=== PATIENT | female | born 1985 | race Caucasian/White ===

== ENCOUNTER 2020-08-06 18:58 | Emergency (ER) | payer OTHER, SELFPAY ==
[2020-08-06 19:18] VITALS: BP 119/60; PULSE 85; RESP 16; TEMP 36.8; O2SAT 100; BMI 33.6
--- NOTE | 2020-08-06 21:34 | CT_ITS ---
EXAMINATION: CT HEAD WITHOUT CONTRAST CLINICAL INFORMATION: Right-sided Headache COMPARISON: None TECHNIQUE: Contiguous axial imaging was performed from the skull base to vertex without intravenous administration of contrast. Coronal and sagittal reformatted images are performed at CT scanner This CT examination was performed using dose optimization techniques as appropriate, variously including the following: *Automated exposure control *Adjustment of mA and/or kV according to patient size (this includes techniques or standardized protocols for targeted exams where dose is matched to indication/reason for exam; i.e. extremities or head) *Use of iterative reconstruction technique DLP: 673 mGy-cm FINDINGS: There is no evidence of acute intracranial hemorrhage or territorial infarction. No abnormal mass effect or midline shift is seen. [place] to white matter differentiation is well preserved. No extra-axial fluid collections are identified. The ventricles are normal in size. There is no abnormal attenuation within the brain parenchyma. The osseous structures and soft tissues are normal. The mastoid air cells and visualized portions of the paranasal sinuses are well aerated. CT/CT head/brain wo con IMPRESSION: No acute intracranial pathology.
--- NOTE | 2020-08-06 21:34 | ED.HA ---
HPI - Headache General Chief Complaint: Headache Stated Complaint: Headache Time Seen by Provider: 08/06/20 22:20 Related Data Previous Rx's Medication Instructions Recorded wrpnabqexp-arqvfbevgsmjd-jdof 1 cap PO Q8H PRN #10 cap 08/06/20 [Fioricet] Allergies Allergy/AdvReac Type Severity Reaction Status Date / Time cephalexin [From KEFLEX] Allergy Unknown RASH Unverified 05/17/20 18:37 sulfamethoxazole Allergy Unknown RASH Unverified 05/17/20 18:37 [From BACTRIM] trimethoprim [From BACTRIM] Allergy Unknown RASH Unverified 05/17/20 18:37 Review of Systems Review of Systems: Constitutional: No Weight loss, No Fever, No Chills, No Night Sweats, No Fatigue, No Malaise, positive right-sided headache ENT/Mouth: No Hearing loss, No Ear Pain, No Nasal Congestion, No Sinus Pain, No Hoarseness, No sore throat, No Rhinorrhea, No Swallowing Difficulty Eyes: Positive right Eye Pain, No Swelling, No Redness, No Foreign Body, No Discharge, No Vision Changes Cardiovascular: No Chest Pain, No SOB, No Dyspnea on Exertion, No Orthopnea, No Edema, No Palpitations Respiratory: No Cough, No Sputum, No Wheezing, No Smoke Exposure, No Dyspnea Gastrointestinal: No Nausea, No Vomiting, No Diarrhea, No Constipation, No abdominal Pain, No Hematochezia, No Melena Genitourinary: no irregular bleeding, No Dysuria, No Urinary Frequency, No Hematuria, No Urinary Incontinence, No Urgency, No Flank Pain, No Urinary Flow Changes, No Hesitancy Musculoskeletal: No joint pain, No Myalgias, No Joint Swelling Skin: No Skin Lesions, No rash Neuro: No Weakness, No Numbness, No Paresthesias, No Loss of Consciousness, No Dizziness, positive Headache Psych: No Anxiety/Panic, No Depression, No SI/HI/AH/VH, No Social Issues Heme/Lymph: No Bruising, No Bleeding,No Lymphadenopathy Endocrine: No Polyuria, No Polydipsia, No Temperature Intolerance Yes all other systems are reviewed and are negative [facility] Past Medical History Attestation statement: The following information was validated with the patient. Medical History No known health problems Social History Social History Advance Directives: No Advance Directives Information Provided: Yes Physical Exam Vital Signs: Vital Signs: Last Vital Signs Temp 98.1 F 08/06/20 22:24 Pulse 76 08/06/20 22:24 Resp 20 08/06/20 22:24 BP 113/72 08/06/20 22:24 Pulse Ox 98 08/06/20 22:24 Body Mass Index 33.6 Appearance: Alert. Oriented X3. No acute distress. Eyes: Pupils equal, round and reactive to light. EOMI, no pain on extraocular movements, funduscopic exam is normal ENT: Pharynx normal. bilateral tympanic membranes intact, no indication of temporal arteritis Neck: Normal inspection. Neck supple. CVS: Normal heart rate and rhythm. Pulses normal. Respiratory: No respiratory distress. Breath sounds normal. Abdomen: Soft and nontender. Skin: Skin warm and dry. Normal skin color. Normal skin turgor. Extremities: No lower extremity edema. Neuro: No motor deficit. No sensory deficit. cranial nerves 2-12 intact, no focal neural deficits, NIH stroke scale 0 NIH Stroke Scale Internal: Initial- Upon Arrival Level of Consciousness: Alert Level of Consciousness Questions: Answers both questions correctly Level of Consciousness Commands: Performs both tasks correctly Best Gaze: Normal Visual: No visual loss Facial Palsy: Normal Motor Arm (Right): No drift Motor Arm (Left): No drift Motor Leg (Right): No drift Motor Leg (Left): No drift Limb Ataxia: Absent Sensory: Normal Best Language: No aphasia Dysarthia: Normal Extinction and Inattention: No abnormality Score: 0 Course Course Course Narrative: patient presents with a right-sided headache, and eye pain. She was referred to the emergency department by her primary care physician and [employer]. She states that both of them think that she is having a stroke right now however she has no focal neural deficits, cranial nerves 2-12 intact. NIH stroke scale is 0 on arrival. She has not used any medications to help alleviate her headache today. Despite multiple discussions and explanations regarding stroke protocol, patient is adamant that she wants a CT scan of her head. She also does not report any history of head trauma, falls, or loss of consciousness. She does not have cancer, is not on any blood thinners. CT scan of head ordered, we will give dose of Fioricet. Patient states that the Fioricet has alleviated her headache from a 10/10 to a 6/10. CT scan of head is negative for acute findings. Plan of care is to discharge patient home. hourly sign language interpreter utilized for all correspondence. Google translate utilized for discharge instructions. MDM - Headache Differential Diagnosis Differential diagnosis: Likely migraine, tension headache, subarachnoid hemorrhage, headache and sinusitis Discharge Plan Discharge Clinical Impression: Migraine, Tension headache Patient Disposition: Home, Self-Care Instructions: Tension Headache (ED), Acute Headache (ED) Additional Instructions: se le evalu? el dolor de zafar del lado derecho. La tomograf?a computarizada del cerebro fue negativa para los hallazgos agudos que requirieron malissa intervenci?n emergente. Se sospecha que esto es un dolor de zafar por migra?a tensional. Seguimiento con el proveedor de atenci?n primaria para el mayor ejercicio. Le recetamos a Fioricet para shalom de zafra. Por favor, tome kirti medicamento chika se indica. Yina por elegir kirti departamento de emergencias para la evaluaci?n. Por favor, evangelina un seguimiento con el m?dico de atenci?n primaria seg?n sea necesario. Regrese al servicio de urgencias para cualquier s?ntoma nuevo, preocupante o que empeore. you were evaluated for right-sided headache. CT scan of the brain was negative for acute findings requiring emergent intervention. This is suspected to be a tension migraine headache. Follow-up with primary care provider for further workup. We prescribed Fioricet for headaches. Please take this medication as directed. Thank you for choosing this emergency department for evaluation. Please follow-up with primary care physician as needed. Return to the emergency department for any new, concerning, or worsening symptoms. Prescriptions: New vywouasdof-digelltrsbubx-diwh [Fioricet] 50-300-40 mg capsule 1 cap PO Q8H PRN (Reason: headache) Qty: 10 RF: 0 Interventions: ED Discharge Assessment Last Done: 08/06/20 22:58 Discharge Date/Time: 08/06/20 22:59
[2020-08-06] MEDS: Butalb/Acetamin/Caff 50/325/40 TABLET 1 TAB PO (21:43)
[2020-08-06 22:24] VITALS: BP 113/72; PULSE 76; RESP 20; TEMP 36.7; O2SAT 98
== END 2020-08-06 22:59 | disposition home or self-care (01) ==
PROVIDERS: Emergency Provider Internal Medicine
DX: G44.209 Tension-type headache, unspecified, not intractable (principal); G43.909 Migraine, unspecified, not intractable, without status migrainosus
CPT/HCPCS: 70450; 99283; 99284

== ENCOUNTER 2023-03-10 15:41 | Emergency (ER) | payer OTHER, SELFPAY ==
--- NOTE | ~2023-03-10 | XR_ITS ---
EXAMINATION: XR CHEST CLINICAL INFORMATION: Shortness of breath. COMPARISON: None available. TECHNIQUE: Frontal view of the chest was obtained. FINDINGS: No significant abnormality is noted involving the heart, lungs, mediastinum, bony thorax or soft tissues. XR/XR chest 1V IMPRESSION: No acute cardiopulmonary process.
--- NOTE | 2023-03-10 15:50 | ECG_ITS ---
Test Reason : CP Blood Pressure : / mmHG Vent. Rate : 076 BPM Atrial Rate : 076 BPM P-R Int : 158 ms QRS Dur : 078 ms QT Int : 372 ms P-R-T Axes : 062 008 -06 degrees QTc Int : 418 ms Normal sinus rhythm Nonspecific T wave abnormality Abnormal ECG When compared with ECG of 29-APR-2019 22:40, No significant change was found Referred By: Chad Leslie Electronically Signed By:TIARA MARCOS MD
--- NOTE | 2023-03-10 15:50 | ED_ITS ---
HPI - General Adult General Chief complaint: Chest Pain Stated complaint: Headache/SOB Related Data Previous Rx's ?Medication ?Instructions ?Recorded jjrklggvhp-qlqyawmehdvql-qfophmml 1 cap PO Q8H PRN headache #10 caps 08/06/20 50 mg-300 mg-40 mg capsule (Fioricet) amoxicillin 500 mg capsule 1,000 mg (2 x 500 mg) PO TID 5 12/14/23 days #30 caps ondansetron 4 mg disintegrating 4 mg PO Q8H PRN nausea and 12/14/23 tablet vomiting #10 tabs Allergies Allergy/AdvReac Type Severity Reaction Status Date / Time cephalexin [From KEFLEX] Allergy Unknown RASH Verified 12/14/23 12:42 sulfamethoxazole Allergy Unknown RASH Verified 12/14/23 12:42 [From BACTRIM] trimethoprim [From BACTRIM] Allergy Unknown RASH Verified 12/14/23 12:42 PMFSH Past Medical History Medical History No known health problems Social History Social History Smoked in Last 30 Days: Yes Use of substances other than those prescribed or required for medical reasons: No Advance Directives: No Advance Directives Information Provided: No Physical Exam ED Vital Signs: BMI result Body Mass Index 34.7 Course Course Course Narrative: This is an RME: Additional HPI, ROS, PE not included below will be deferred to primary provider. 38-year-old female without significant medical history presents to the emergency department complaints of right-sided headache, severe, feeling faint, weakness, shortness of breath, fatigue, malaise, myalgias ongoing since this morning, sudden in onset. Patient also reports she is having palpitations. Patient anxious appearing on exam. Bp: 133/94 T: 97.9F R: 14 P: 88 O2 98% RA Plan- labs, urine Medical Decision Making Lab Data 03/10/23 16:40 03/10/23 16:40 Labs: Lab Results 03/10/23 03/10/23 Range/Units 16:40 16:47 WBC 11.3 H (4.8-10.8) X10*3/uL RBC 4.45 (4.20-5.50) X10*6/uL Hgb 12.3 (12.0-16.0) g/dl Hct 37.2 (37.0-47.0) % MCV 83.6 (80.0-98.0) fL MCH 27.6 (27.0-33.0) pg MCHC 33.1 (31.0-35.0) g/dl RDW 13.3 (11.0-16.0) % Plt Count 351 (160-400) X10*3/uL MPV 10.3 (9.4-12.3) fL Immature Gran % (Auto) 0.3 (0.0-0.4) % Neut % (Auto) 71.5 (45-73) % Lymph % (Auto) 20.4 (20-40) % [place] % (Auto) 6.7 (2-11) % Eos % (Auto) 0.7 (0-4) % Baso % (Auto) 0.4 (0-2) % Lymph # (Auto) 2.3 (1.2-4.9) X10*3/uL [place] # (Auto) 0.8 (0.1-1.2) X10*3/uL Eos # (Auto) 0.1 (0.0-0.4) X10*3/uL Baso # (Auto) 0.1 (0.0-0.2) X10*3/uL Abs Immat Gran (auto) 0.03 (0.00-0.03) X10*3/uL Absolute Neuts (auto) 8.1 (2.0-8.3) x10*3/uL Absolute Nucleated RBC 0.000 (0.0-0.012) X10*3/uL Nucleated RBC % (auto) 0.0 (0.0-0.2) /100WBC D-Dimer High Sensitivty < 150 NG/ML Sodium 137 (135-145) mmol/L Potassium 3.6 (3.3-5.1) mmol/L Chloride 106 (96-108) mmol/L Carbon Dioxide 21 L (22-29) mmol/L Anion Gap 14 (12-20) BUN 6 L (9-16) mg/dL Creatinine 0.70 (0.5-1.4) mg/dL Estim Creat Clear Calc 113.0 Estimated GFR > 60 Random Glucose 110 (60-115) mg/dL Calcium 9.3 (8.4-10.2) mg/dL Magnesium 2.0 (1.6-2.6) mg/dL Total Bilirubin 0.6 (0.0-1.0) mg/dL AST 15 (5-31) U/L ALT 14 (0-31) U/L Alkaline Phosphatase 70 (39-117) U/L Troponin I High Sens < 2.7 (<3.5-17.0) ng/L Total Protein 7.4 (6.5-8.0) g/dL Albumin 3.8 (3.5-5.0) g/dL Urine Color Yellow Urine Appearance Clear Urine pH 6.0 (5.0-9.0) Ur Specific [place] 1.025 (1.005-1.025) Urine Protein Trace (Neg-Trace) mg/dL Urine Glucose (UA) Negative (Negative) mg/dL Urine Ketones Trace (Negative) mg/dL Urine Blood Moderate (2+) H (Negative) Urine Nitrite Negative (Negative) Ur Leukocyte Esterase Negative (Negative) Urine RBC 11-20 H (0-2) /HPF Urine WBC 0-5 (0-5) /HPF Ur Squamous Epith Cells 3-5 (0-2) /HPF Urine Bacteria Trace (None Seen) Hyaline Casts 0-2 (0-2) /LPF Urine Test NEGATIVE (NEGATIVE) Discharge Plan Discharge Clinical Impression: Eloped from emergency department Patient Disposition: Elopement Prescriptions: No Action ggtizuqmyk-hytxjdqnycnem-ruoq [Fioricet] 50-300-40 mg capsule 1 cap PO Q8H PRN (Reason: headache) Qty: 10 0RF ondansetron 4 mg tablet,disintegrating 4 mg PO Q8H PRN (Reason: nausea and vomiting) Qty: 10 0RF amoxicillin 500 mg capsule 1,000 mg PO TID 5 Days Qty: 30 0RF Discharge Date/Time: 03/11/23 00:31 Print Language: Albanian
[2023-03-10 15:53] VITALS: BP 133/94; PULSE 88; RESP 19; TEMP 36.6; O2SAT 98; BMI 34.7
[2023-03-10 16:49] LABS: MANUAL DIFF FLAG NO
[2023-03-10 16:55] LABS: Basophils Absolute Auto 0.1 X10*3/uL (0.0-0.2); Basophils Percent Auto 0.4 % (0-2); Eosinophils Absolute Auto 0.1 X10*3/uL (0.0-0.4); Eosinophils Percent Auto 0.7 % (0-4); Hematocrit 37.2 % (37.0-47.0); Hemoglobin 12.3 g/dl (12.0-16.0); Imm Gran Abs Auto 0.03 X10*3/uL (0.00-0.03); Imm Gran Pct Auto 0.3 % (0.0-0.4); Lymphocytes Absolute Auto 2.3 X10*3/uL (1.2-4.9); Lymphocytes Percent Auto 20.4 % (20-40); Mean Corpuscular HGB Conc 33.1 g/dl (31.0-35.0); Mean Corpuscular Hemoglobin 27.6 pg (27.0-33.0); Mean Corpuscular Volume 83.6 fL (80.0-98.0); Mean Platelet Volume 10.3 fL (9.4-12.3); Monocytes Absolute Auto 0.8 X10*3/uL (0.1-1.2); Monocytes Percent Auto 6.7 % (2-11); Neutrophils Absolute Auto 8.1 x10*3/uL (2.0-8.3); Neutrophils Percent Auto 71.5 % (45-73); Platelet Count 351 X10*3/uL (160-400); Red Blood Count 4.45 X10*6/uL (4.20-5.50); Red Cell Distribution Width 13.3 % (11.0-16.0); White Blood Count 11.3 X10*3/uL (4.8-10.8)
[2023-03-10 17:02] LABS: Appearance Urine Clear; Color Urine Yellow; Glucose Urine UA Negative (Negative); Leukocyte Esterase Urine Negative (Negative); Nitrite Urine Negative (Negative); Specific Gravity - Urine 1.025 (1.005-1.025); UMIC TRIGGER UACC YES; Urine Blood Moderate (2+) (Negative); Urine Ketones Trace mg/dL (Negative); Urine Protein Trace mg/dL (Neg-Trace)
[2023-03-10 17:06] LABS: D Dimer High Sensitivity < 150 NG/ML
[2023-03-10 17:07] LABS: UPreg QC Valid YES; Urine Pregnancy NEGATIVE (NEGATIVE)
[2023-03-10 17:08] LABS: Bacteria Urine Trace (None Seen); Hyaline Casts Urine 0-2 /LPF (0-2); WBC Urine 0-5 /HPF (0-5)
[2023-03-10 17:11] LABS: Alanine Aminotransferase 14 U/L (0-31); Albumin Level 3.8 g/dL (3.5-5.0); Alkaline Phosphatase 70 U/L (39-117); Anion Gap 14 (12-20); Aspartate Amino Transferase 15 U/L (5-31); Bilirubin Total 0.6 mg/dL (0.0-1.0); Blood Urea Nitrogen 6 mg/dL (9-16); Calcium 9.3 mg/dL (8.4-10.2); Carbon Dioxide 21 mmol/L (22-29); Chloride 106 mmol/L (96-108); Estimated Glomerular Filt Rate > 60; Glucose Random 110 mg/dL (60-115); Potassium 3.6 mmol/L (3.3-5.1); Sodium 137 mmol/L (135-145); Total Protein 7.4 g/dL (6.5-8.0)
[2023-03-10 17:18] LABS: Troponin-I High Sensitivity < 2.7 ng/L (<3.5-17.0)
== END 2023-03-11 00:31 | disposition left against medical advice (07) ==
LOC: HO.ED 03-11 00:25
PROVIDERS: Physician Assistant; Emergency Provider Emergency Medicine; PCP Internal Medicine
DX: R51.9 Headache, unspecified (principal); R06.02 Shortness of breath; F41.9 Anxiety disorder, unspecified; R00.2 Palpitations
CPT/HCPCS: 36415; 71045; 80053; 81001; 81003; 81025; 83735; 84484; 85025; 85379; 93005; 99283

== ENCOUNTER → 2023-03-10 15:50 | Outpatient (BNV) | payer OTHER, SELFPAY | PROVIDERS: Emergency Provider Emergency Medicine; PCP Internal Medicine; Visit Provider Internal Medicine Cardiovascular Disease | DX: R94.31 Abnormal electrocardiogram [ECG] [EKG] (principal); R07.9 Chest pain, unspecified | CPT/HCPCS: 93010 ==

== ENCOUNTER 2023-12-14 12:01 | Emergency (ER) | payer OTHER, SELFPAY ==
--- NOTE | ~2023-12-14 | XR_ITS ---
EXAMINATION: XR CHEST CLINICAL INFORMATION: Cough. COMPARISON: Chest radiograph dated 03/10/2023. TECHNIQUE: 2 views of the chest were obtained. FINDINGS: The trachea is in normal anatomic position. Heart size is normal. There is a subtle right lower lobe opacity which was not seen on the prior examination and is felt to represent developing pneumonia. The left lung is clear. There is no pleural effusion or pneumothorax. There is no acute osseous abnormality. XR/XR chest 2V IMPRESSION: Suspected right lower lobe pneumonia.
--- NOTE | ~2023-12-14 | CT_ITS ---
EXAMINATION: CT ABDOMEN AND PELVIS WITHOUT CONTRAST CLINICAL INFORMATION: LLQ tenderness. COMPARISON: No pertinent prior studies are available for comparison. TECHNIQUE: Multidetector volumetric imaging was performed from the superior aspect of the liver through the pubic symphysis without contrast per request. Sagittal and coronal reformatted images were obtained on the technologist workstation. This CT examination was performed using dose optimization techniques as appropriate, variously including the following: *Automated exposure control *Adjustment of mA and/or kV according to patient size (this includes techniques or standardized protocols for targeted exams where dose is matched to indication/reason for exam; i.e. extremities or head) *Use of iterative reconstruction technique DLP: 614 mGy-cm. FINDINGS: LUNG BASES: Focal opacity in the right lower lobe most consistent with partially visualized pneumonia. Subtle air bronchograms are seen laterally. More hazy airspace changes in the left lingula as well. LIVER, GALLBLADDER, BILIARY TREE: The non-contrast liver is normal in size, shape, and attenuation. Coarse calcifications in the posterior right lobe the liver incidentally noted. No focal hepatic lesion or biliary ductal dilatation is present. The gallbladder is unremarkable with no evidence of radiopaque gallstones, gallbladder wall thickening, or obvious pericholecystic inflammatory changes. PANCREAS: Unremarkable. SPLEEN: Unremarkable. ADRENAL GLANDS: Unremarkable. KIDNEYS AND URETERS: The kidneys are normal in size, shape, and attenuation. No hydronephrosis, hydroureter, or perinephric stranding. No calculi. BLADDER: Decompressed GASTROINTESTINAL TRACT: A few scattered colonic diverticula seen. No obvious colonic wall thickening or pericolonic inflammatory change to suggest diverticulitis. Normal-appearing appendix in the right lower quadrant. Visualized small bowel unremarkable. ABDOMINAL WALL: No significant hernia is appreciated. LYMPHOVASCULAR STRUCTURES: No lymphadenopathy. The aorta is unremarkable.. PELVIC VISCERA: Physiologic changes. OSSEUS STRUCTURES: Degenerative changes in the bilateral hips CT/CT abdomen pelvis wo IV con IMPRESSION: Focal airspace disease in the right lower lobe most consistent with partially visualized pneumonia. More hazy airspace disease in the left lingula as well. No acute intra-abdominal process seen otherwise.
[2023-12-14 12:42] VITALS: BP 137/99; PULSE 114; RESP 26; TEMP 37.4; O2SAT 94; BMI 32.1
--- NOTE | 2023-12-14 12:43 | ED.GENADULT ---
HPI - General Adult General Chief complaint: Abdominal Pain Stated complaint: Covid symptoms Time Seen by Provider: 12/14/23 14:34 Source: patient and family Mode of arrival: ambulatory Limitations: no limitations History of Present Illness HPI narrative: 38 yo female presenting to the ER for evaluation of cough, congestion, headache, weakness, and feeling unwell for the last 4 days. She presents with her daughter who has similar symptoms. she also reports left sided abdominal pain and vomiting after eating for a few months. She has been trying to get a hold of her doctor but has been unable to be evaluated for this. No diarrhea. No fevers. She has not vaccinated for the flu. MD complaint: URI symptoms, left side abdominal pain and vomiting Quality: aching Pain Consistency: intermittent Relieving factors: none Associated symptoms: cough, fever/chills, headaches, loss of appetite, malaise, nausea/vomiting, shortness of breath and weakness Treatments prior to arrival: none Related Data Previous Rx's ?Medication ?Instructions ?Recorded bztgesmqos-bbiupzzcqsyny-wlofafrp 1 cap PO Q8H PRN headache #10 caps 08/06/20 50 mg-300 mg-40 mg capsule (Fioricet) amoxicillin 500 mg capsule 1,000 mg (2 x 500 mg) PO TID 5 12/14/23 days #30 caps ondansetron 4 mg disintegrating 4 mg PO Q8H PRN nausea and 12/14/23 tablet vomiting #10 tabs Allergies Allergy/AdvReac Type Severity Reaction Status Date / Time cephalexin [From KEFLEX] Allergy Unknown RASH Verified 12/14/23 12:42 sulfamethoxazole Allergy Unknown RASH Verified 12/14/23 12:42 [From BACTRIM] trimethoprim [From BACTRIM] Allergy Unknown RASH Verified 12/14/23 12:42 Review of Systems Review of Systems: Yes all other systems are reviewed and are negative PMFSH Past Medical History Medical History No known health problems Social History Social History Smoked in Last 30 Days: Yes Use of substances other than those prescribed or required for medical reasons: No Advance Directives: No Advance Directives Information Provided: No Physical Exam ED Vital Signs: Vital Signs - 24 hr 12/14/23 12:42 12/14/23 15:54 12/14/23 17:38 Temperature 99.3 F 98.4 F Pulse Rate 114 H 100 Respiratory Rate 26 H 19 28 H Blood Pressure 137/99 H 114/54 L 111/58 L Pulse Oximetry 94 96 94 Oxygen Delivery Method Room Air Room Air Room Air BMI result Body Mass Index 32.1 Appearance: Alert. Oriented X3. No acute distress. Head: normocephalic, atraumatic. Eyes: Pupils equal, round and reactive to light. ENT: Pharynx normal. No tonsillar swelling or exudate. Neck: Normal inspection. Neck supple. CVS: Tachycardic, regular rhythm heart rate of 100. Pulses normal. Respiratory: No respiratory distress. Breath sounds coarse throughout with scattered expiratory wheezes, cleared with coughing. Abdomen: Soft with left lower quadrant tenderness and guarding. Normal active +BS x4 Skin: Skin warm and dry. Normal skin color. Normal skin turgor. No rashes. Extremities: No lower extremity edema. No joint swelling. Neuro/psych: Oriented X 3. No motor deficit. No sensory deficit. CN II-XII intact. Normal speech and cognition. Course Course Course Narrative: RME- 38 old female presents for evaluation left lower abdominal pain has been present for months. She also complains of cough, headache, body aches, weakness. Plan for labs, UA, viral swabs Reevaluation(s) Reevaluation #1: VS improved. awaiting CT scan results. will repeat K. Signed out to Gulshan Jacques NP who will f/u results and dispo Time: 16:14 Reevaluation #2: Repeat potassium of 3.1 after receiving potassium chloride 10 mEq use intravenous, and 60 mEq p.o. Urinalysis with microscopic hematuria, significant squamous epithelial cells, 1+ urine bacteria Chest x-ray/ CT of the abdomen and pelvis reveals partially visualized pneumonia of the right lower lobe, hazy airspace disease in the left lingula as well, otherwise no acute intra-abdominal process. Concern for superimposed bacterial pneumonia in the setting influenza given leukocytosis left shift and no other obvious source of infection. Will treat with amoxicillin 1g 3 times daily for 5 days XR/XR chest 2V IMPRESSION: Suspected right lower lobe pneumonia. CT/CT abdomen pelvis wo IV con IMPRESSION: Focal airspace disease in the right lower lobe most consistent with partially visualized pneumonia. More hazy airspace disease in the left lingula as well. No acute intra-abdominal process seen otherwise. Medications Administered Discontinued Medications Generic Name Dose Route Start Last Admin Trade Name Freq PRN Reason Stop Dose Admin Acetaminophen 975 mg 12/14/23 14:48 12/14/23 15:04 Acetaminophen 325 Mg Tablet PO 12/14/23 14:49 975 mg ONCE ONE Administration Lactated Ringer's 1,000 mls @ 999 mls/hr 12/14/23 15:00 12/14/23 18:47 Lr IV 12/14/23 16:00 Infused .Q1H1M MARCO Infusion Potassium Chloride 10 meq in 100 mls @ 100 mls/hr 12/14/23 14:59 12/14/23 17:33 Potassium Chloride/H20 IV 12/14/23 15:58 Infused ONCE ONE Infusion Potassium Chloride 10 meq in 100 mls @ 100 mls/hr 12/14/23 17:59 12/14/23 18:53 Potassium Chloride/H20 IV 12/14/23 18:58 100 mls/hr ONCE ONE Administration Ondansetron HCl 4 mg 12/14/23 14:48 12/14/23 15:04 Ondansetron Odt 4 Mg Tab.Rapdis TRANSLINGU 12/14/23 14:49 4 mg ONCE ONE Administration Potassium Chloride 60 meq 12/14/23 14:59 12/14/23 15:20 Potassium Chloride Er 20 Meq Tab.Er.Prt PO 12/14/23 15:00 60 meq ONCE ONE Administration Medical Decision Making Medical Decision Making [facility] Narrative: 38-year-old female presents the ER for evaluation of feeling sick for the last 4 days with sore throat, headache, weakness, nasal congestion, coughing. She also reports left-sided abdominal pain and postprandial vomiting for months. She is tender in her LLQ and suprapubic area. Her URI symptoms are most c/w flu vs covid. CT scan ordered due to her abdominal tenderness. 15:35 - Labs showing WBC 16K. Meeting sepsis criteria with tachycardia, elevated RR however this is due to viral source as patient found to be Influenza A +. No role for tamiflu given she is 4 days into her symptoms. She was also found to have K 2.8, likely due to GI losses. Given PO and IV KCl and LR. No vomiting here. SL zofran given. Differential Diagnosis Differential Diagnoses: The differential diagnosis associated with the presentation includes strep, covid, flu, rsv, other viral syndrome, bronchitis, pneumonia, diverticulitis, UTI Admission/Observation Consideration of admission/observation: Escalation of care including admission/observation considered Lab Data MDM Lab Attestation statement: I reviewed the patient's lab results. Leukocytosis with white blood cell count 16.2, hypokalemia of 2.8, hyperglycemia 205 12/14/23 14:28 12/14/23 16:32 Labs: Lab Results 12/14/23 12/14/23 12/14/23 Range/Units 14:28 16:32 16:53 WBC 16.2 H (4.8-10.8) X10*3/uL RBC 4.88 (4.20-5.50) X10*6/uL Hgb 13.7 (12.0-16.0) g/dl Hct 40.1 (37.0-47.0) % MCV 82.2 (80.0-98.0) fL MCH 28.1 (27.0-33.0) pg MCHC 34.2 (31.0-35.0) g/dl RDW 13.1 (11.0-16.0) % Plt Count 255 D (160-400) X10*3/uL MPV 11.5 (9.4-12.3) fL Immature Gran % (Auto) 0.6 H (0.0-0.4) % Neut % (Auto) 87.0 H (45-73) % Lymph % (Auto) 3.9 L (20-40) % [place] % (Auto) 8.4 (2-11) % Eos % (Auto) 0.0 (0-4) % Baso % (Auto) 0.1 (0-2) % Lymph # (Auto) 0.6 L (1.2-4.9) X10*3/uL [place] # (Auto) 1.4 H (0.1-1.2) X10*3/uL Eos # (Auto) 0.0 (0.0-0.4) X10*3/uL Baso # (Auto) 0.0 (0.0-0.2) X10*3/uL Abs Immat Gran (auto) 0.09 H (0.00-0.03) X10*3/uL Absolute Neuts (auto) 14.1 H (2.0-8.3) x10*3/uL Absolute Nucleated RBC 0.000 (0.0-0.012) X10*3/uL Nucleated RBC % (auto) 0.0 (0.0-0.2) /100WBC Sodium 137 (135-145) mmol/L Potassium 2.8 L* 3.1 L (3.3-5.1) mmol/L Chloride 102 (96-108) mmol/L Carbon Dioxide 26 (22-29) mmol/L Anion Gap 12 (12-20) BUN 7 L (9-16) mg/dL Creatinine 0.75 (0.5-1.4) mg/dL Estim Creat Clear Calc 101.2 Estimated GFR > 60 Random Glucose 205 H (60-115) mg/dL Calcium 8.9 (8.4-10.2) mg/dL Total Bilirubin 0.4 (0.0-1.0) mg/dL AST 13 (5-31) U/L ALT 17 (0-31) U/L Alkaline Phosphatase 69 (39-117) U/L Total Protein 7.9 (6.5-8.0) g/dL Albumin 4.0 (3.5-5.0) g/dL Lipase 5 L (8-78) U/L Urine Color Dark Yellow Urine Appearance Turbid Urine pH 5.5 (5.0-9.0) Ur Specific [place] 1.025 (1.005-1.025) Urine Protein 300 (3+) H (Neg-Trace) mg/dL Urine Glucose (UA) 100 H (Negative) mg/dL Urine Ketones 15 (Negative) mg/dL Urine Blood Large (3+) H (Negative) Urine Nitrite Negative (Negative) Ur Leukocyte Esterase Negative (Negative) Urine RBC 3-5 H (0-2) /HPF Urine WBC 0-5 (0-5) /HPF Ur Squamous Epith Cells >20 (0-2) /HPF Urine Bacteria 1+ (None Seen) Hyaline Casts 11-20 (0-2) /LPF Urine Test NEGATIVE (NEGATIVE) Influenza Type A (PCR) POSITIVE A (Negative) Influenza Type B (PCR) NEGATIVE (Negative) RSV RNA Qual (PCR) NEGATIVE (Negative) SARS-CoV-2 RNA (RT-PCR) NEGATIVE (Negative) S. pyogenes GrpA JOSSE Negative (Negative) Independent Interpretation I performed an independent interpretation of an: CT Scan Radiology Impression Discussion of test interpretation with radiology: I have reviewed the radiologist's reading. External Record Review External record reviewed: Outpatient record and Prior outpatient labs Prescription Management I considered prescription management with: Pain Medication, Antiviral and Antibiotic Critical Care Time Critical Care Time Critical Care Time: Yes Total Critical Care Time: 39 Attestation: I have personally provided critical care time exclusive of time spent on separately billable procedures. Time includes review of lab data, radiology results, multiple bedside reassessments, and monitoring for potential decompensation. Intervention performed as documented. Discharge Plan Discharge Clinical Impression: Hypokalemia, Influenza A Community acquired pneumonia Qualifiers: Laterality: right Lung location: lower lobe of lung Qualified Code(s): J18.9 - Pneumonia, unspecified organism Patient Disposition: Home, Self-Care Instructions: Hypokalemia (ED), Influenza (DC) Additional Instructions: You were found to have the flu and have developed pneumonia in your right lower lung. A prescription for antibiotic was sent to your pharmacy, please complete this entire course. Rest. Drink plenty of fluids. Do not go out in public while you are not feeling well. Take over the counter cold/flu medications as needed for your symptoms. Take Tylenol and/or Motrin as needed for fevers and body aches. Follow up with your doctor this week. If you develop new or worsening symptoms call 911 or come back to the ER for further evaluation. Prescriptions: New ondansetron 4 mg tablet,disintegrating 4 mg PO Q8H PRN (Reason: nausea and vomiting) Qty: 10 0RF amoxicillin 500 mg capsule 1,000 mg PO TID 5 Days Qty: 30 0RF No Action hvkxzsvsyd-xqiwnypuzooeg-dyid [Fioricet] 50-300-40 mg capsule 1 cap PO Q8H PRN (Reason: headache) Qty: 10 0RF Referrals: [facility] [Provider Group] (postprandial vomiting for months) Riddhi Carvajal DO [Primary Care Provider] - Print Language: Andorran
[2023-12-14 14:35] LABS: MANUAL DIFF FLAG NO
[2023-12-14 14:45] LABS: Basophils Percent Auto 0.1 % (0-2); Hematocrit 40.1 % (37.0-47.0); Hemoglobin 13.7 g/dl (12.0-16.0); Imm Gran Abs Auto 0.09 X10*3/uL (0.00-0.03); Imm Gran Pct Auto 0.6 % (0.0-0.4); Lymphocytes Absolute Auto 0.6 X10*3/uL (1.2-4.9); Lymphocytes Percent Auto 3.9 % (20-40); Mean Corpuscular HGB Conc 34.2 g/dl (31.0-35.0); Mean Corpuscular Hemoglobin 28.1 pg (27.0-33.0); Mean Corpuscular Volume 82.2 fL (80.0-98.0); Mean Platelet Volume 11.5 fL (9.4-12.3); Monocytes Absolute Auto 1.4 X10*3/uL (0.1-1.2); Monocytes Percent Auto 8.4 % (2-11); Neutrophils Absolute Auto 14.1 x10*3/uL (2.0-8.3); Platelet Count 255 X10*3/uL (160-400); Red Blood Count 4.88 X10*6/uL (4.20-5.50); Red Cell Distribution Width 13.1 % (11.0-16.0); White Blood Count 16.2 X10*3/uL (4.8-10.8)
[2023-12-14 14:47] LABS: IDNOW Serial# 08D9AD1C; Strep A Nucleic Acid Negative (Negative)
[2023-12-14 15:00] LABS: Alanine Aminotransferase 17 U/L (0-31); Alkaline Phosphatase 69 U/L (39-117); Anion Gap 12 (12-20); Aspartate Amino Transferase 13 U/L (5-31); Bilirubin Total 0.4 mg/dL (0.0-1.0); Blood Urea Nitrogen 7 mg/dL (9-16); Calcium 8.9 mg/dL (8.4-10.2); Carbon Dioxide 26 mmol/L (22-29); Chloride 102 mmol/L (96-108); Creatinine Clr Calc Pharmacy 101.2; Estimated Glomerular Filt Rate > 60; Glucose Random 205 mg/dL (60-115); Lipase 5 U/L (8-78); Potassium 2.8 mmol/L (3.3-5.1); Sodium 137 mmol/L (135-145); Total Protein 7.9 g/dL (6.5-8.0)
[2023-12-14] MEDS: Ondansetron ODT 4 MG TAB.RAPDIS TRANSLINGU (15:04)
[2023-12-14] MEDS: Acetaminophen 325 MG TABLET 975 MG PO (15:04)
[2023-12-14 15:18] LABS: Influenza A PCR POSITIVE (Negative); Influenza B PCR NEGATIVE (Negative); Resp Syncy Virus RNA Qual PCR NEGATIVE (Negative); SARS COV2 PCR INHOUSE NEGATIVE (Negative)
[2023-12-14] MEDS: Potassium Chloride ER 20 MEQ TAB.ER.PRT 60 MEQ PO (15:20)
[2023-12-14] MEDS: Potassium Chloride/H20 10 MEQ/100 ML PIGGYBACK 100 MEQ IV ×2 (15:24→18:53)
[2023-12-14 15:54] VITALS: BP 114/54; PULSE 100; RESP 19; O2SAT 96
[2023-12-14 16:55] LABS: Potassium 3.1 mmol/L (3.3-5.1)
[2023-12-14 17:04] LABS: Appearance Urine Turbid; Color Urine Dark Yellow; Glucose Urine UA 100 mg/dL (Negative); Leukocyte Esterase Urine Negative (Negative); Nitrite Urine Negative (Negative); PH 5.5 (5.0-9.0); Specific Gravity - Urine 1.025 (1.005-1.025); UMIC TRIGGER UACC YES; Urine Blood Large (3+) (Negative); Urine Ketones 15 mg/dL (Negative); Urine Protein 300 (3+) mg/dL (Neg-Trace)
[2023-12-14 17:05] LABS: UPreg QC Valid YES; Urine Pregnancy NEGATIVE (NEGATIVE)
[2023-12-14 17:18] LABS: Bacteria Urine 1+ (None Seen); Squamous Epithelial Cell Urine >20 /HPF (0-2); WBC Urine 0-5 /HPF (0-5)
[2023-12-14] MEDS: Lactated Ringers 1,000 ML 999 ML IV (17:34)
[2023-12-14 17:38] VITALS: BP 111/58; RESP 28; TEMP 36.9; O2SAT 94
[2023-12-14 20:12] VITALS: BP 106/79; PULSE 92; RESP 18; TEMP 37.1; O2SAT 95
[2023-12-14] MEDS: Amoxicillin 500 MG CAPSULE 1000 MG PO (20:12)
[2023-12-14 20:23] VITALS: BP 106/79; PULSE 92; RESP 18; TEMP 37.1; O2SAT 95
== END 2023-12-14 20:24 | disposition home or self-care (01) ==
PROVIDERS: Physician Assistant; Emergency Provider Emergency Medicine; PCP Internal Medicine
DX: J10.00 Influenza due to other identified influenza virus with unspecified type of pneumonia (principal); E87.6 Hypokalemia; Z88.2 Allergy status to sulfonamides
CPT/HCPCS: 0241U; 36415; 71046; 74176; 80053; 81001; 81025; 83690; 84132; 85025; 87651; 96361; 96365; 96366; 99284; J3480; J7120

== ENCOUNTER 2024-05-26 15:23 | Emergency (ER) | payer OTHER, SELFPAY ==
--- NOTE | ~2024-05-26 | US_ITS ---
EXAMINATION: US PELVIS CLINICAL INFORMATION: Vaginal bleeding. COMPARISON: None available. TECHNIQUE: Ultrasound of the pelvis is performed using both transabdominal and transvaginal transducers along with Doppler. Transvaginal imaging is performed due to inadequate visualization transabdominally. FINDINGS: Uterus: The uterus is anteverted and measures 10 x 4 x 4.5 cm. Nabothian cysts are seen. The double wall endometrial thickness is 0.4-0.5 mm. There is a small hypoechoic myometrial nodules measuring up to 1.4 x 1.1 x 1.4 cm and 0.7 x 0.7 x 0.7 cm at the mid body of the uterus. Adnexa: Both ovaries are visualized. There is normal color flow to the adnexa. There is no ovarian torsion. There is no pelvic ascites or fluid collection. Right ovary measures 2 x 1.3 x 1.5 cm. Arterial and venous flow is seen within the right ovary. Left ovary measures 2.7 x 3.2 x 1.8 cm. Arterial and venous flow is seen within the left ovary. US/US pelvic ovarian doppler IMPRESSION: 1. There are 2 small hypoechoic myometrial nodules measuring up to 1.4 cm, likely fibroids. 2. Nabothian cysts. 3. Normal appearance of the ovaries. Electronically signed by: Christoph Osman MD 05/27/2024 02:32 AM EDT
--- NOTE | ~2024-05-26 | US_ITS ---
EXAMINATION: US PELVIS CLINICAL INFORMATION: Vaginal bleeding. COMPARISON: None available. TECHNIQUE: Ultrasound of the pelvis is performed using both transabdominal and transvaginal transducers along with Doppler. Transvaginal imaging is performed due to inadequate visualization transabdominally. FINDINGS: Uterus: The uterus is anteverted and measures 10 x 4 x 4.5 cm. Nabothian cysts are seen. The double wall endometrial thickness is 0.4-0.5 mm. There is a small hypoechoic myometrial nodules measuring up to 1.4 x 1.1 x 1.4 cm and 0.7 x 0.7 x 0.7 cm at the mid body of the uterus. Adnexa: Both ovaries are visualized. There is normal color flow to the adnexa. There is no ovarian torsion. There is no pelvic ascites or fluid collection. Right ovary measures 2 x 1.3 x 1.5 cm. Arterial and venous flow is seen within the right ovary. Left ovary measures 2.7 x 3.2 x 1.8 cm. Arterial and venous flow is seen within the left ovary. US/US pelvic and transvaginal IMPRESSION: 1. There are 2 small hypoechoic myometrial nodules measuring up to 1.4 cm, likely fibroids. 2. Nabothian cysts. 3. Normal appearance of the ovaries. Electronically signed by: Christoph Osman MD 05/27/2024 02:32 AM EDT
[2024-05-26 16:24] VITALS: BP 123/61; PULSE 64; RESP 16; TEMP 35.8; O2SAT 100; BMI 32.6
--- NOTE | 2024-05-26 16:29 | ED.GENADULT ---
HPI - General Adult General Chief complaint: Urogenital-Female Stated complaint: vaginal bleeding Time Seen by Provider: 05/26/24 21:22 Source: patient Limitations: no limitations History of Present Illness ED Provider: Haydee Hernandez PA-C HPI narrative: 39-year-old female with known uterine mass presents with heavy vaginal bleeding x 5 days. Patient states she had a regular period 2 weeks ago, however, she developed additional vaginal bleeding last weekend. Patient states the bleeding is heavy, she is passing clots at times, having to change large pads at least 6 times a day. Associated pelvic discomfort, but it is primarily left-sided, with vomiting. Denies fever. Patient does not use control. Related Data Previous Rx's ?Medication ?Instructions ?Recorded qjsppldxob-byfeipfqvhvrj-ogrkswgf 1 cap PO Q8H PRN headache #10 caps 08/06/20 50 mg-300 mg-40 mg capsule (Fioricet) amoxicillin 500 mg capsule 1,000 mg (2 x 500 mg) PO TID 5 12/14/23 days #30 caps ondansetron 4 mg disintegrating 4 mg PO Q8H PRN nausea and 12/14/23 tablet vomiting #10 tabs Allergies Allergy/AdvReac Type Severity Reaction Status Date / Time cephalexin [From KEFLEX] Allergy Unknown RASH Verified 05/26/24 16:29 sulfamethoxazole Allergy Unknown RASH Verified 05/26/24 16:29 [From BACTRIM] trimethoprim [From BACTRIM] Allergy Unknown RASH Verified 05/26/24 16:29 Review of Systems Review of Systems: Yes all other systems are reviewed and are negative Constitutional: Constitutional: Denies fatigue and Denies fever(s) Cardiovascular: Cardiovascular: Denies chest pain and Denies dyspnea Respiratory: Respiratory: Denies dyspnea Gastrointestinal: Gastrointestinal: Reports abdominal pain, Reports nausea and Reports vomiting Genitourinary: Genitourinary: Reports menorrhagia Endocrine: Endocrine: Denies fatigue PMFSH Past Medical History Attestation statement: The following information was validated with the patient. Medical History No known health problems Social History Social History Advance Directives: No Advance Directives Information Provided: No Do you have a plan to hurt others: No Plan Physical Exam ED Vital Signs: Vital Signs - 24 hr 05/26/24 16:24 05/26/24 19:59 05/26/24 21:36 Temperature 96.5 F L Pulse Rate 64 61 60 Respiratory Rate 16 17 16 Blood Pressure 123/61 117/65 101/48 L Pulse Oximetry 100 100 96 Oxygen Delivery Method Room Air Room Air Room Air 05/27/24 00:00 Temperature 98.3 F Pulse Rate 61 Respiratory Rate 16 Blood Pressure 100/73 Pulse Oximetry 98 Oxygen Delivery Method Room Air BMI result Body Mass Index 32.6 Const Other: Alert, well in appearance Orientation/consciousness: patient oriented x3 Resp Effort & Inspection: normal respiratory effort Cardio Other: Normal peripheral perfusion GI Other: Abdomen is soft, nondistended, mild tenderness over lower abdomen, most prominent left pelvic region, however no guarding Other: Deferring for now Skin Other: Warm dry no rash Neuro General: patient oriented x3, no focal motor deficits and CN's II-XI intact bilaterally Psych Other: Calm cooperative Course Course Course Narrative: RME: Done by [facility] [place]. 39-year-old female presents to ED for vaginal bleeding. Patient states vaginal bleeding for the past 4 days and has used 6 pads per day. Patient states earlier in the month she had a menstruation and nauseous bleeding again. Patient states also lower abdominal pain. Positive for lower down tenderness on palpation. Labs ordered Reevaluation(s) Reevaluation #1: This patient was signed out to me at change of shift by the physician student assistant pending the results of a pelvic ultrasound for vaginal bleeding. The patient has a negative test. She is not significantly anemic. The pelvic ultrasound was ordered to evaluate the vaginal bleeding. There was a long period of time for the results of the pelvic ultrasound to be available and the patient left the emergency room before the results of the ultrasound were available and before I saw the patient. She therefore left the emergency room prior to completing treatment. Time: 02:31 Reevaluation #2: The patient's ultrasound resulted after she had left the emergency department prior to completing treatment. The ultrasound showed 2 small hypoechoic myometrial nodules measuring up to 1.4 cm, likely fibroids. No other concerning findings other than nabothian cysts present. I attempted to reach the patient by calling her cell phone at [phone]. I received a message that said the person was not available and there was no option for leaving a message. 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 Given that her bleeding has been mild and her hemoglobin was stable I do not think there is a clear indication for further action at this time. Time: 02:40 Medications Administered Discontinued Medications Generic Name Dose Route Start Last Admin Trade Name Rola PRN Reason Stop Dose Admin Ketorolac Tromethamine 15 mg 05/26/24 21:52 05/26/24 23:06 Ketorolac Tromethamine 15 Mg/Ml Vial IM 05/26/24 21:53 Not Given ONCE ONE Ketorolac Tromethamine 15 mg 05/27/24 00:52 05/27/24 01:09 Ketorolac Tromethamine 15 Mg/Ml Vial IM 05/27/24 00:53 15 mg ONCE ONE Administration Methocarbamol 750 mg 05/27/24 01:49 05/27/24 02:50 Methocarbamol 750 Mg Tablet PO 05/27/24 01:50 Not Given ONCE ONE Medical Decision Making Medical Decision Making MDM Narrative: 39-year-old female with known uterine mass presents with heavy vaginal bleeding x 5 days. Patient states she had a regular period 2 weeks ago, however, she developed additional vaginal bleeding last weekend. Patient states the bleeding is heavy, she is passing clots at times, having to change large pads at least 6 times a day. Associated pelvic discomfort, but it is primarily left-sided, with vomiting. Denies fever. Patient does not use control. Problem: Known uterine mass, dysfunctional uterine bleeding History: Per patient I have considered the following differential diagnoses: Dyssynchronous endometrium, fibroid, uterine cancer, dysmenorrhea, ectopic Plan: Patient's assessment began out inRME, screening labs including a transvaginal ultrasound were obtained. The ultrasound read is not back. Since the patient arrived at 330 pm, she has only had to changed the pad 3 times. She is hemodynamically stable. Patient not , ectopic least likely I have independently reviewed the following tests: Labs: Not anemic, no leukocytosis, no electrolyte abnormality, not , urine not infected, Transvaginal ultrasound: Lab Data 05/26/24 16:48 05/26/24 16:48 Labs: Lab Results 05/26/24 Range/Units 16:48 WBC 8.4 (4.8-10.8) X10*3/uL RBC 4.31 (4.20-5.50) X10*6/uL Hgb 12.4 (12.0-16.0) g/dl Hct 36.9 L (37.0-47.0) % MCV 85.6 (80.0-98.0) fL MCH 28.8 (27.0-33.0) pg MCHC 33.6 (31.0-35.0) g/dl RDW 13.5 (11.0-16.0) % Plt Count 364 D (160-400) X10*3/uL MPV 10.2 (9.4-12.3) fL Immature Gran % (Auto) 0.4 (0.0-0.4) % Neut % (Auto) 65.1 (45-73) % Lymph % (Auto) 24.5 (20-40) % [place] % (Auto) 8.1 (2-11) % Eos % (Auto) 1.3 (0-4) % Baso % (Auto) 0.6 (0-2) % Lymph # (Auto) 2.1 (1.2-4.9) X10*3/uL [place] # (Auto) 0.7 (0.1-1.2) X10*3/uL Eos # (Auto) 0.1 (0.0-0.4) X10*3/uL Baso # (Auto) 0.1 (0.0-0.2) X10*3/uL Abs Immat Gran (auto) 0.03 (0.00-0.03) X10*3/uL Absolute Neuts (auto) 5.5 (2.0-8.3) x10*3/uL Absolute Nucleated RBC 0.000 (0.0-0.012) X10*3/uL Nucleated RBC % (auto) 0.0 (0.0-0.2) /100WBC Sodium 140 (135-145) mmol/L Potassium 3.5 (3.3-5.1) mmol/L Chloride 105 (96-108) mmol/L Carbon Dioxide 29 (22-29) mmol/L Anion Gap 10 L (12-20) BUN 6 L (9-16) mg/dL Creatinine 0.67 (0.5-1.4) mg/dL Estim Creat Clear Calc 117.3 Estimated GFR > 60 Random Glucose 65 (60-115) mg/dL Calcium 9.6 D (8.4-10.2) mg/dL Total Bilirubin 0.5 (0.0-1.0) mg/dL AST 13 (5-31) U/L ALT 11 (0-31) U/L Alkaline Phosphatase 73 (39-117) U/L Total Protein 7.9 (6.5-8.0) g/dL Albumin 4.3 (3.5-5.0) g/dL Beta HCG, Quant < 2 mIU/mL Urine Color RED Urine Appearance Clear Urine pH 5.5 (5.0-9.0) Ur Specific [place] <= 1.005 (1.005-1.025) Urine Protein Trace (Neg-Trace) mg/dL Urine Glucose (UA) Negative (Negative) mg/dL Urine Ketones Negative (Negative) mg/dL Urine Blood Large (3+) H (Negative) Urine Nitrite Negative (Negative) Ur Leukocyte Esterase Negative (Negative) Urine RBC 6-10 H (0-2) /HPF Urine WBC 0-5 (0-5) /HPF Ur Squamous Epith Cells 0-2 (0-2) /HPF Urine Bacteria None Seen (None Seen) Hyaline Casts 0-2 (0-2) /LPF Urine Test NEGATIVE (NEGATIVE) Discharge Plan Discharge Clinical Impression: Dysfunctional uterine bleeding Patient Disposition: Left W/O Completing Treatment Prescriptions: No Action vhkluodcmu-rghkhtbwgvthn-gxgn [Fioricet] 50-300-40 mg capsule 1 cap PO Q8H PRN (Reason: headache) Qty: 10 0RF ondansetron 4 mg tablet,disintegrating 4 mg PO Q8H PRN (Reason: nausea and vomiting) Qty: 10 0RF amoxicillin 500 mg capsule 1,000 mg PO TID 5 Days Qty: 30 0RF Discharge Date/Time: 05/27/24 02:20
[2024-05-26 16:55] LABS: MANUAL DIFF FLAG NO
[2024-05-26 16:58] LABS: Basophils Absolute Auto 0.1 X10*3/uL (0.0-0.2); Basophils Percent Auto 0.6 % (0-2); Eosinophils Absolute Auto 0.1 X10*3/uL (0.0-0.4); Eosinophils Percent Auto 1.3 % (0-4); Hematocrit 36.9 % (37.0-47.0); Hemoglobin 12.4 g/dl (12.0-16.0); Imm Gran Abs Auto 0.03 X10*3/uL (0.00-0.03); Imm Gran Pct Auto 0.4 % (0.0-0.4); Lymphocytes Absolute Auto 2.1 X10*3/uL (1.2-4.9); Lymphocytes Percent Auto 24.5 % (20-40); Mean Corpuscular HGB Conc 33.6 g/dl (31.0-35.0); Mean Corpuscular Hemoglobin 28.8 pg (27.0-33.0); Mean Corpuscular Volume 85.6 fL (80.0-98.0); Mean Platelet Volume 10.2 fL (9.4-12.3); Monocytes Absolute Auto 0.7 X10*3/uL (0.1-1.2); Monocytes Percent Auto 8.1 % (2-11); Neutrophils Absolute Auto 5.5 x10*3/uL (2.0-8.3); Neutrophils Percent Auto 65.1 % (45-73); Platelet Count 364 X10*3/uL (160-400); Red Blood Count 4.31 X10*6/uL (4.20-5.50); Red Cell Distribution Width 13.5 % (11.0-16.0); White Blood Count 8.4 X10*3/uL (4.8-10.8)
[2024-05-26 17:06] LABS: UPreg QC Valid YES; Urine Pregnancy NEGATIVE (NEGATIVE)
[2024-05-26 17:17] LABS: Appearance Urine Clear; Color Urine RED; Glucose Urine UA Negative (Negative); Leukocyte Esterase Urine Negative (Negative); Nitrite Urine Negative (Negative); PH 5.5 (5.0-9.0); Specific Gravity - Urine <= 1.005 (1.005-1.025); UMIC TRIGGER UACC YES; Urine Blood Large (3+) (Negative); Urine Ketones Negative (Negative); Urine Protein Trace mg/dL (Neg-Trace)
[2024-05-26 17:20] LABS: Alanine Aminotransferase 11 U/L (0-31); Albumin Level 4.3 g/dL (3.5-5.0); Alkaline Phosphatase 73 U/L (39-117); Anion Gap 10 (12-20); Aspartate Amino Transferase 13 U/L (5-31); Bilirubin Total 0.5 mg/dL (0.0-1.0); Blood Urea Nitrogen 6 mg/dL (9-16); Calcium 9.6 mg/dL (8.4-10.2); Carbon Dioxide 29 mmol/L (22-29); Chloride 105 mmol/L (96-108); Creatinine Clr Calc Pharmacy 117.3; Estimated Glomerular Filt Rate > 60; Glucose Random 65 mg/dL (60-115); Potassium 3.5 mmol/L (3.3-5.1); Sodium 140 mmol/L (135-145); Total Protein 7.9 g/dL (6.5-8.0)
[2024-05-26 17:26] LABS: HCG Quantitative < 2 mIU/mL
[2024-05-26 17:32] LABS: Squamous Epithelial Cell Urine 0-2 /HPF (0-2); WBC Urine 0-5 /HPF (0-5)
[2024-05-26 17:33] LABS: Bacteria Urine None Seen (None Seen); Hyaline Casts Urine 0-2 /LPF (0-2)
[2024-05-26 19:59] VITALS: BP 117/65; PULSE 61; RESP 17; O2SAT 100
[2024-05-26 21:36] VITALS: BP 101/48; PULSE 60; RESP 16; O2SAT 96
--- NOTE | 2024-05-26 23:07 | PC.NURSE ---
upon entering room pt is sleeping. awoke to name. pt denies pain at this time. held med per mar, provider okay. educated pt to make RN aware if pain returns. call adame within reach.
[2024-05-27] VITALS: BP 100/73; PULSE 61; RESP 16; TEMP 36.8; O2SAT 98
--- NOTE | 2024-05-27 00:40 | PC.NURSE ---
pt rang call adame, to bedside with staff nurse. pt states pain has returned and feels she needs something at this time. also stated frustration with wait time and requesting results for u/s. educated pt report not completed but will notify PA to speak with pt about results. pt stated understanding and appeared to calm down, resting in stretcher. PA made aware pt would like to speak with her.
[2024-05-27] MEDS: Ketorolac Tromethamine 15 MG/ML VIAL IM (01:09)
--- NOTE | 2024-05-27 02:52 | PC.NURSE ---
provider stated spoke with pt and pt was in agreement to stay to wait for u/s results. upon entering room with interpreter deaf at 0220 to medicate pt, pt not in room and hospital gown found on stretcher. per registration staff pt stated she is all set to leave and exited er approx 0205. MD Rubi made aware.
== END 2024-05-27 02:20 | disposition left against medical advice (07) ==
PROVIDERS: Physician Assistant; Emergency Provider Emergency Medicine; PCP Internal Medicine
DX: N93.8 Other specified abnormal uterine and vaginal bleeding (principal); R10.2 Pelvic and perineal pain; Z79.899 Other long term (current) drug therapy
CPT/HCPCS: 36415; 76830; 76856; 80053; 81001; 81003; 81025; 84702; 85025; 93975; 96372; 99284; J1885

== ENCOUNTER 2024-10-27 09:48 | Emergency (ER) | payer OTHER, SELFPAY ==
[2024-10-27 09:55] VITALS: BP 106/60; PULSE 95; RESP 18; TEMP 36.4; O2SAT 99; BMI 31.1
[2024-10-27 10:29] LABS: MANUAL DIFF FLAG NO
[2024-10-27 10:37] LABS: Basophils Percent Auto 0.2 % (0-2); Eosinophils Percent Auto 0.5 % (0-4); Hematocrit 39.2 % (37.0-47.0); Hemoglobin 13.5 g/dl (12.0-16.0); Imm Gran Abs Auto 0.02 X10*3/uL (0.00-0.03); Imm Gran Pct Auto 0.3 % (0.0-0.4); Lymphocytes Absolute Auto 0.9 X10*3/uL (1.2-4.9); Lymphocytes Percent Auto 15.2 % (20-40); Mean Corpuscular HGB Conc 34.4 g/dl (31.0-35.0); Mean Corpuscular Hemoglobin 29.3 pg (27.0-33.0); Mean Platelet Volume 10.5 fL (9.4-12.3); Monocytes Absolute Auto 0.7 X10*3/uL (0.1-1.2); Monocytes Percent Auto 11.1 % (2-11); Neutrophils Absolute Auto 4.3 x10*3/uL (2.0-8.3); Neutrophils Percent Auto 72.7 % (45-73); Platelet Count 278 X10*3/uL (160-400); Red Blood Count 4.61 X10*6/uL (4.20-5.50); Red Cell Distribution Width 13.3 % (11.0-16.0)
[2024-10-27 10:48] LABS: Alanine Aminotransferase 13 U/L (0-31); Albumin Level 4.2 g/dL (3.5-5.0); Alkaline Phosphatase 66 U/L (39-117); Anion Gap 10 (12-20); Aspartate Amino Transferase 18 U/L (5-31); Bilirubin Direct 0.3 mg/dL (0.0-0.5); Bilirubin Total 0.7 mg/dL (0.0-1.0); Blood Urea Nitrogen 9 mg/dL (9-16); Calcium 8.5 mg/dL (8.4-10.2); Carbon Dioxide 26 mmol/L (22-29); Chloride 106 mmol/L (96-108); Creatinine Clr Calc Pharmacy 117.4; Estimated Glomerular Filt Rate > 60; Glucose Random 117 mg/dL (60-115); Lipase 9 U/L (8-78); Potassium 3.7 mmol/L (3.3-5.1); Sodium 138 mmol/L (135-145); Total Protein 8.3 g/dL (6.5-8.0)
[2024-10-27] MEDS: Lidocaine HCl Viscous 2 % 15 ML SOLUTION MUCOUS MEM (11:36)
[2024-10-27] MEDS: Magnesium Hydrox/Alum Hydrox 30 ML ORAL.SUSP PO (11:36)
[2024-10-27] MEDS: Ondansetron ODT 4 MG TAB.RAPDIS TRANSLINGU (11:36)
[2024-10-27 12:04] VITALS: BP 121/47; PULSE 74; RESP 12; TEMP 36.8; O2SAT 99
--- NOTE | 2024-10-27 12:10 | ED_ITS ---
HPI - General Adult General Chief complaint: General Medical Stated complaint: left pelvic pain Time Seen by Provider: 10/27/24 11:03 Source: patient, RN notes reviewed and old records reviewed Mode of arrival: ambulatory History of Present Illness ED Provider: Tree DO narrative: 39-year-old female with history of fibromas presents for evaluation abdominal pain. Patient reports mostly left-sided and left upper abdominal pain for the last 2 days. She reports associated nausea, vomiting, and diarrhea. She reports that a few months ago she was diagnosed with fibromas and had 21 days of vaginal bleeding. She denies any vaginal bleeding today Denies any fevers, chills She describes her pain as burning in nature No other complaints or concerns at this time Related Data Previous Rx's ?Medication ?Instructions ?Recorded igtzxvjzgf-hocqschmszwvg-oygrfpwg 1 cap PO Q8H PRN headache #10 caps 08/06/20 50 mg-300 mg-40 mg capsule (Fioricet) amoxicillin 500 mg capsule 1,000 mg (2 x 500 mg) PO TID 5 12/14/23 days #30 caps ondansetron 4 mg disintegrating 4 mg PO Q8H PRN nausea and 12/14/23 tablet vomiting #10 tabs aluminum-mag hydroxide-simethicone 10 ml PO QID PRN indigestion 10/27/24 200 mg-200 mg-20 mg/5 mL oral susp #3,000 mL (Maalox Advanced) famotidine 20 mg tablet 20 mg PO DAILY #30 tabs 10/27/24 Allergies Allergy/AdvReac Type Severity Reaction Status Date / Time cephalexin [From KEFLEX] Allergy Unknown RASH Verified 10/27/24 09:55 sulfamethoxazole Allergy Unknown RASH Verified 10/27/24 09:55 [From BACTRIM] trimethoprim [From BACTRIM] Allergy Unknown RASH Verified 10/27/24 09:55 Review of Systems 2 Constitutional: Constitutional: Denies anorexia, Denies body ache(s), Denies chills, Denies fever(s) and Denies headache(s) Eyes: Eyes: Denies blurry vision ENT: Denies vertigo, Denies dizziness and Denies headache(s) Cardiovascular: Cardiovascular: Denies chest pain and Denies dyspnea Respiratory: Respiratory: Denies cough and Denies dyspnea Gastrointestinal: Gastrointestinal: Reports abdominal pain, Denies melena, Denies hematochezia, Reports diarrhea, Reports nausea and Reports vomiting Genitourinary: Genitourinary: Denies vaginal discharge Musculoskeletal: Musculoskeletal: Denies back pain Integumentary/Breasts: Skin/Breast: Denies rash Neurologic: Denies vertigo, Denies dizziness and Denies headache(s) [facility] Past Medical History Medical History No known health problems Social History Social History Advance Directives: No Advance Directives Information Provided: Yes Physical Exam ED Vital Signs: Vital Signs - 24 hr 10/27/24 09:55 10/27/24 12:04 Temperature 97.6 F 98.2 F Pulse Rate 95 74 Respiratory Rate 18 12 Blood Pressure 106/60 121/47 L Pulse Oximetry 99 99 Oxygen Delivery Method Room Air Room Air BMI result Body Mass Index 31.1 Const General: healthy appearing, comfortable, no acute distress, alert and awake Nutritional Appearance: well nourished Orientation/consciousness: patient oriented x3 HENMT Head: Yes normocephalic and Yes atraumatic Eyes Eyelids: Yes eyelids normal Conjunctivae: conjunctivae normal Sclerae: sclerae normal Corneas: corneas normal Pupils: Equal, round and reactive pupils present EOM: EOMs intact bilaterally Neck Neck: Yes full ROM Resp Effort & Inspection: normal respiratory effort, able to speak in complete sentences and not labored GI Inspection: No distended Palpation (GI): Soft to palpation, not firm, Tenderness to palpation present (GI) in the epigastrum and in the LUQ; not in the LLQ, not in the RLQ and not in the RUQ, no guarding and not rigid Skin General skin exam: elasticity normal Neuro General: patient oriented x3 Cranial nerves: Yes Equal, round and reactive pupils present and Yes Bilaterally intact EOM present Cognition (Neuro): normal cognition Course Reevaluation(s) Reevaluation #1: Patient's pain improved after GI cocktail, she was requesting discharge. We will discharge her with Maalox and GI follow-up as she does not have her own GI provider Time: 13:37 Medications Administered Discontinued Medications Generic Name Dose Route Start Last Admin Trade Name Freq PRN Reason Stop Dose Admin Al Hydroxide/Mg Hydroxide 30 ml 10/27/24 11:21 10/27/24 11:36 Magnesium Hydrox/Alum Hydrox 30 Ml Oral.Susp PO 10/27/24 11:22 30 ml ONCE ONE Administration Lidocaine HCl 15 ml 10/27/24 11:21 10/27/24 11:36 Lidocaine Hcl Viscous 2 % 15 Ml Solution MUCOUS MEM 10/27/24 11:22 15 ml ONCE ONE Administration Ondansetron HCl 4 mg 10/27/24 11:21 10/27/24 11:36 Ondansetron Odt 4 Mg Tab.Rapdis TRANSLINGU 10/27/24 11:22 4 mg ONCE ONE Administration Medical Decision Making Medical Decision Making MDM Narrative: 39-year-old female presents for evaluation abdominal pain. She does mentioned fibromas but her pain is mostly in the upper abdomen and burning in nature. Your symptoms are more consistent with GERD. She was given a GI cocktail and reports improvement in her symptoms. She has no right upper quadrant tenderness to suggest gallbladder disease. She has no white count to suggest infectious process. Electrolytes are within normal limits. Urinalysis pending. Plan to discharge the patient with GI follow-up Differential Diagnosis Differential Diagnoses: The differential diagnosis associated with the presentation includes GERD Gastritis Peptic ulcer disease Biliary disease Abdominal pain Fibromas Lab Data MDM Lab Attestation statement: I reviewed the patient's lab results. No leukocytosis or significant anemia. Normal platelet count. No electrolyte abnormalities. 10/27/24 10:18 10/27/24 10:18 Labs: Lab Results 10/27/24 Range/Units 10:18 WBC 6.0 (4.8-10.8) X10*3/uL RBC 4.61 (4.20-5.50) X10*6/uL Hgb 13.5 (12.0-16.0) g/dl Hct 39.2 (37.0-47.0) % MCV 85.0 (80.0-98.0) fL MCH 29.3 (27.0-33.0) pg MCHC 34.4 (31.0-35.0) g/dl RDW 13.3 (11.0-16.0) % Plt Count 278 (160-400) X10*3/uL MPV 10.5 (9.4-12.3) fL Immature Gran % (Auto) 0.3 (0.0-0.4) % Neut % (Auto) 72.7 (45-73) % Lymph % (Auto) 15.2 L (20-40) % [place] % (Auto) 11.1 H (2-11) % Eos % (Auto) 0.5 (0-4) % Baso % (Auto) 0.2 (0-2) % Lymph # (Auto) 0.9 L (1.2-4.9) X10*3/uL [place] # (Auto) 0.7 (0.1-1.2) X10*3/uL Eos # (Auto) 0.0 (0.0-0.4) X10*3/uL Baso # (Auto) 0.0 (0.0-0.2) X10*3/uL Abs Immat Gran (auto) 0.02 (0.00-0.03) X10*3/uL Absolute Neuts (auto) 4.3 (2.0-8.3) x10*3/uL Absolute Nucleated RBC 0.000 (0.0-0.012) X10*3/uL Nucleated RBC % (auto) 0.0 (0.0-0.2) /100WBC Sodium 138 (135-145) mmol/L Potassium 3.7 (3.3-5.1) mmol/L Chloride 106 (96-108) mmol/L Carbon Dioxide 26 (22-29) mmol/L Anion Gap 10 L (12-20) BUN 9 (9-16) mg/dL Creatinine 0.63 (0.5-1.4) mg/dL Estim Creat Clear Calc 117.4 Estimated GFR > 60 Random Glucose 117 H (60-115) mg/dL Calcium 8.5 D (8.4-10.2) mg/dL Total Bilirubin 0.7 (0.0-1.0) mg/dL Direct Bilirubin 0.3 (0.0-0.5) mg/dL AST 18 (5-31) U/L ALT 13 (0-31) U/L Alkaline Phosphatase 66 (39-117) U/L Total Protein 8.3 H (6.5-8.0) g/dL Albumin 4.2 (3.5-5.0) g/dL Lipase 9 (8-78) U/L Discharge Plan Discharge Clinical Impression: Abdominal pain Patient Disposition: Home, Self-Care Instructions: Gastroesophageal Reflux Disease (ED), Abdominal Pain (ED) Additional Instructions: Your symptoms today are most consistent with heartburn. Take Maalox as needed for abdominal pain/heartburn symptoms. I also recommend taking famotidine daily Follow up with the GI number provided, call tomorrow to schedule an appointment Prescriptions: New alum-mag hydroxide-simeth [Maalox Advanced] 200-200-20 mg/5 mL suspension 10 ml PO QID PRN (Reason: indigestion) Qty: 3000 0RF Rx Instructions: administer between meals and at bedtime famotidine 20 mg tablet 20 mg PO DAILY Qty: 30 0RF No Action [id number]-cyvnsfbokfnpf-wcfa [Fioricet] 50-300-40 mg capsule 1 cap PO Q8H PRN (Reason: headache) Qty: 10 0RF ondansetron 4 mg tablet,disintegrating 4 mg PO Q8H PRN (Reason: nausea and vomiting) Qty: 10 0RF amoxicillin 500 mg capsule 1,000 mg PO TID 5 Days Qty: 30 0RF Referrals: Harini Rodney MD [Physician] - (GERD) Print Language: Maltese
--- OUTSIDE RECORDS SUMMARY | 2024-10-27 13:25 | XMS_ITS | Clinical Summary ---
Author Organization [employer] Address [address] [facility] [address] [place] [address] Care Team Providers Care Fire Alarm Dispatcher Name Role Phone Unavailable Primary Care Provider Unavailabl e Allergies Active Allergy Reactions Criticality Noted Date Comments Cephalexin 07/03/2014 Patient states she developed rash after taking this and bactrim Sulfamethoxazole-Trimethopr im 07/03/2014 Patient states she developed rash after taking this and keflex Medications No known medications Active Problems No known active problems Social History Tobacco Use Types Packs/Day Years Used Date Smoking Tobacco: Never Smokeless Tobacco: Never Tobacco Cessation:Counseling Given: Not Answered Comments Unknown Sex and Gender Information Value Date Recorded Sex Assigned at Female 06/30/2022 10:31 AM EDT Legal Sex Female 10:31 AM EDT Gender Identity Female 06/30/2022 10:31 AM EDT Sexual Orientation Straight 06/30/2022 10 :31 AM EDT Plan of Treatment Health Maintenance Due Date Last Done Comments Depression Screening 1983 HIV Screening 1983 SDOH Screening 1983 Alcohol/Substance Use Screening 1995 Family Planning (PISQ) 1998 Hepatitis C Screening 2001 Hepatitis B Vaccines (1 of 3 - 19+ 3-dose series) 2002 Pap Smear 02/21/2004 Cervical Cancer Screening 2013 HPV/Cotest 2013 Mammogram 2023 Tobacco Screening 03/13/2024 03/13/2023 COVID-19 Vaccine ( - 2023-2 5 season) 2024 Influenza Vaccine (#1) 2024 DTaP/Tdap/Td Vaccines (2 - T d or Tdap) 06/19/2025 06/19/2015 Zoster Vaccines (1 of 2) 2033 RSV Patients and Pa tients Aged 60 years or older (1 - 1-dose 75+ series) 2058 HIB Vaccines Aged Out No longer eligi ble based on patient's age to complete this topic HPV Vaccines Aged Out No longer eligi ble based on patient's age to complete this topic Hepatitis A Vaccines Aged Out No long er eligible based on patient's age to complete this topic IPV Vaccines Aged Out No longer eligi ble based on patient's age to complete this topic Meningococcal Vaccine Aged Out No piper irina eligible based on patient's age to complete this topic Pneumococcal Vaccine: Pediat rics (0 to 5 Years) and At-Risk Patients (6 to 49) Years) Aged Out No longer elig ible based on patient's age to complete this topic RSV under 20 months Aged Out No longe r eligible based on patient's age to complete this topic Rotavirus Vaccines Aged Out No longer eligible based on patient's age to complete this topic [facility]
--- OUTSIDE RECORDS SUMMARY | 2024-10-27 13:25 | XMS_ITS | Encounter Summary ---
Author Organization [facility] Address [address] [place] [address] Care Team Providers Care Bus Person Name Role Phone Justine Ridley MD Primary Care Provider [phone] Encounter Details Date Type Department Care Team (Late st Contact Info) Description 09/02/2024 Telephone Obstetrics and Gynecology - [place] [address] [place] [address] Huong Saunders, [facility] [address] [place] [address] Social History Tobacco Use Types Packs/Day Years Used Date Smoking Tobacco: Never Smokeless Tobacco: Never Alcohol Use Standard Drinks/Week Comments No 0 (1 standard drink = 0.6 oz pur e alcohol) Comments Unknown Sex and Gender Information Value Date Recorded Sex Assigned at Not on file Legal Sex Female 9:52 AM EST Gender Identity Not on file Sexual Orientation Not on file documented as of this encounter Progress Notes * Dawna Suarez RN - 09/02/2024 4:27 PM EST Spoke with patients daughter interpreting .Pt c/o left abdominal pain with swelling. Pt c/o vomiting after eating and nausea. Pt has a Hx of diverticulitis and advised to follow up with PCP Katelynn Loomis. * Dawna Suarez RN - 09/02/2024 4:14 PM EST VM left to return call * Denise Wong - 09/02/2024 3:45 PM EST Chief Complaint/problem: pelvic pain left side How long has the patient had this problem? Ongoing Pt???s VETERINARY TECHNICIAN provider: Huong Saunders CNM Last menstrual period (LMP) or EDC (due date): na documented in this encounter Plan of Treatment Not on file documented as of this encounter Visit Diagnoses Not on filedocumented in this encounter Care Teams Bus Person Relationship Specialty Start Date End Date Justine Ridley MD [address] [place] [address] PCP - General Internal Medicine 05/27/21 documented as of this encounter
--- OUTSIDE RECORDS SUMMARY | 2024-10-27 13:25 | XMS_ITS | Clinical Summary ---
Author Organization [facility] [address] [facility] Address [address] [place] [address] Phone Care Team Providers Care Binding Stitcher Name Role Phone Justine Ridley MD Primary Care Provider [phone] Allergies Active Allergy Reactions Criticality Noted Date Comments Cephalexin Monohydrate 07/03/2014 Patient states she developed rash after taking this and bactrim Sulfamethoxazole-Trimethopr im 07/03/2014 Patient states she developed rash after taking this and keflex Medications docusate sodium (COLACE) 100 mg capsule Take 1 Capsule by mouth 2 times daily as needed for Constipation. Notes to Pharmacy: Provider only wants her to take for 30 days and get refills from her PCP in the future. 01/14/2024 Active Active Problems Problem Noted Date Diagnosed Date Chronic abdominal pain 06/27/2024 Overview (08/16/2024): Last Assessment & Plan: I counseled Ramila that her pain sound most likely GI in nature. No evidence of General Cargo Clerk pathology that would cause it. I recommended she see GI and a referral was placed. She was informed that she should hear back in 1-2 weeks with an appointment date. If not, she should call back to our office and inquire on getting this arranged. She voiced understanding and agreed. Heavy period 06/27/2024 Overview (08/16/2024): Last Assessment & Plan: Explained that this could be a one time issue. If so, nothing to do about it. I reviewed US findings with her. Two very small fibroids that would not contribute to pain or bleeding and no other pathology. She will observe for now. B12 deficiency 10/20/2013 Thyromegaly 10/20/2013 TSH deficiency 10/20/2013 Encounters Date Type Department Care Team Description 09/02/2024 Telephone Adult Medicine [place] - [place] [id number] [place] [phone] Justine Ridley MD Memory Loss (/) 09/02/2024 Telephone Obstetrics and Gynecology - [address] [id number] Huong Saunders CNM from Last 3 Months Immunizations Name Administration Dates Next Due PPD Test 01/02/2017,06/19/2015,10/19/2013 Tdap Tetanus diptheria acell ular pertussis (Boostrix; Adacel) 7yo and older 06/19/2015 Surgical History Surgery Date Site/Laterality Comments SECTION PROCEDURE: HISTORICAL DELIVERY; COMMENT: x3 1999, 2003, 2006 TUBAL LIGATION PROCEDURE: HISTORICAL TUBAL LIGATION Medical History Medical History Date Comments Unspecified disorder of thyroid DX:Unspecified disorder of thyroid Family History Medical History Relation Name Comments Asthma Father Anemia Mother Breast cancer Neg Hx Ovarian cancer Neg Hx Uterine cancer Neg Hx Relation Name Status Comments Father Alive Mother Alive Social History Tobacco Use Types Packs/Day Years Used Date Smoking Tobacco: Never Smokeless Tobacco: Never Alcohol Use Standard Drinks/Week Comments No 0 (1 standard drink = 0.6 oz pur e alcohol) Comments Unknown Sex and Gender Information Value Date Recorded Sex Assigned at Not on file Legal Sex Female 9:52 AM EST Gender Identity Not on file Sexual Orientation Not on file Obstetrics History Last Filed Vital Signs Vital Sign Reading Time Taken Comments Blood Pressure 96/54 06/27/2024 2:57 PM EDT Pulse 68 06/27/2024 2:57 PM EDT Temperature - - Respiratory Rate - - Oxygen Saturation - - Inhaled Oxygen Concentration - - Weight 81.8 kg (180 lb 6.4 oz) 06/27/2024 2:57 P M EDT Height 157.5 cm (5' 2 ) 09/08/2023 9:29 AM EST Body Mass Index 33 09/08/2023 9:29 AM EST Plan of Treatment Health Maintenance Due Date Last Done Comments Breast Cancer Screening 1983 Hepatitis B Vaccines (1 of 3 - 19+ 3-dose series) 2002 Cervical Cancer Screening: P ap Smear 06/25/2015 06/25/2012, 06/25/2012 Cholesterol Screening (Lipid Panel) 07/29/2022 07/23/2015 Depression Screening 07/29/2022 HIV Screening 07/29/2022 Hepatitis C Screening 07/29/2022 Social Influencers of Health Screening 07/29/2022 COVID-19 Vaccine (1 - 2023-2 5 season) 2024 Influenza Vaccine (#1) 2024 DTaP,Tdap,and Td Vaccines (2 - Td or Tdap) 06/19/2025 06/19/2015 HIB Vaccines Aged Out No longer eligi [...] on patient's age to complete this topic MMR Vaccines Aged Out No longer eligi ble based on patient's age to complete this topic Meningococcal ACWY Vaccine Aged Out N o longer eligible based on patient's age to complete this topic Meningococcal B Vacine Aged Out No lo nger eligible based on patient's age to complete this topic Pneumococcal Vaccine: Pediatrics (0 to 5 Years) and At-Risk Patients (6 to 64 Years) Aged Out No longer eligible b ased on patient's age to complete this topic RSV Immunization Patients Under 20 months Aged Out No longer eligible b ased on patient's age to complete this topic Varicella Vaccines Aged Out No longer eligible based on patient's age to complete this topic Procedures Procedure Name Priority Date/Time Associated Diagnosis Comments LIPID PANEL Routine 07/23/2015 HM HPV Routine 06/25/2012 from Last 3 Months or Most Recently Relevant to Health Maintenance Results * Lipid panel (07/23/2015) LDL/HDL Ratio 2 0 - 4 Triglycerides 56 0 - 150 mg/dL Cholesterol 141 0 - 200 mg/dL HDL 63 >=40 mg/dL LDL Cholesterol 67 0 - 100 mg/dL Blood Venous blood specimen / Unknown us Historical Provider LAB BLOOD ORDERABLES [place] Result * Cervical Cancer Screening: HPV (06/25/2012) Pathologist [facility] Cervical Cancer Screening: HPV No interpretation , Abstracted us Historical Provider HEALTH MAINTENANCE Final Result from Last 3 Months or Most Recently Relevant to Health Maintenance Care Teams Binding Stitcher Relationship Specialty Start Date End Date Justine Ridley MD [address] [place] [id number] PCP - General Internal Medicine 05/27/21
[2024-10-27 13:43] LABS: Appearance Urine Turbid; Color Urine Yellow; Glucose Urine UA Negative (Negative); Leukocyte Esterase Urine Negative (Negative); Nitrite Urine Negative (Negative); PH 5.5 (5.0-9.0); Specific Gravity - Urine 1.025 (1.005-1.025); UMIC TRIGGER UACC YES; Urine Blood Moderate (2+) (Negative); Urine Ketones Trace mg/dL (Negative); Urine Protein Trace mg/dL (Neg-Trace)
[2024-10-27 13:52] VITALS: BP 102/52; PULSE 73; RESP 14; TEMP 36.9; O2SAT 100
[2024-10-27 13:55] LABS: Bacteria Urine 1+ (None Seen); Hyaline Casts Urine 0-2 /LPF (0-2); RBC Urine 0-2 /HPF (0-2); WBC Urine 0-5 /HPF (0-5)
[2024-10-27 14:05] VITALS: BP 102/52; PULSE 73; RESP 14; TEMP 36.9; O2SAT 100
== END 2024-10-27 14:06 | disposition home or self-care (01) ==
PROVIDERS: Emergency Provider Internal Medicine; PCP Internal Medicine
DX: R10.10 Upper abdominal pain, unspecified (principal)
CPT/HCPCS: 36415; 80048; 80076; 81001; 83690; 85025; 99283

== ENCOUNTER 2025-02-23 14:03 | Emergency (ER) | payer OTHER, SELFPAY ==
--- NOTE | 2025-02-23 14:04 | ECG_ITS ---
Test Reason : chest pain Blood Pressure : */* mmHG Vent. Rate : 82 BPM Atrial Rate : 82 BPM P-R Int : 152 ms QRS Dur : 78 ms QT Int : 396 ms P-R-T Axes : 68 18 10 degrees QTcB Int : 462 ms Normal sinus rhythm Normal ECG When compared with ECG of 10-Mar-2023 16:30, No significant change was found Referred By: Generic ED Physician Electronically Signed By: BENJA BARKER
[2025-02-23 14:46] VITALS: BP 111/78; PULSE 77; RESP 16; TEMP 36.7; O2SAT 100; BMI 28.3
--- NOTE | 2025-02-23 14:49 | ED.GENADULT ---
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 3 bowel movements and 3 times vomiting no significant abdominal pain patient also does have heavy menstruation and been followed by animal husbandry technician patient has been having low-grade fever and body aches no other family member sick also does have slight cough and sore throat Related Data Previous Rx's ?Medication ?Instructions ?Recorded gprtswtuxb-fnxsoseujuevt-tjhaeqnb 1 cap PO Q8H PRN headache #10 caps 08/06/20 50 mg-300 mg-40 mg capsule (Fioricet) amoxicillin 500 mg capsule 1,000 mg (2 x 500 mg) PO TID 5 12/14/23 days #30 caps ondansetron 4 mg disintegrating 4 mg PO Q8H PRN nausea and 12/14/23 tablet vomiting #10 tabs aluminum-mag hydroxide-simethicone 10 ml PO QID PRN indigestion 10/27/24 200 mg-200 mg-20 mg/5 mL oral susp #3,000 mL (Maalox Advanced) famotidine 20 mg tablet 20 mg PO DAILY #30 tabs 10/27/24 loperamide 2 mg tablet (Imodium 2 mg PO Q6H PRN loose stool #14 02/23/25 A-D) tabs ondansetron 4 mg disintegrating 4 mg PO Q6-8H PRN nausea and 02/23/25 tablet vomiting #7 tabs Allergies Allergy/AdvReac Type Severity Reaction Status Date / Time cephalexin (From KEFLEX) Allergy Unknown RASH Verified 02/23/25 14:52 sulfamethoxazole (From Allergy Unknown RASH Verified 02/23/25 14:52 BACTRIM) trimethoprim (From BACTRIM) Allergy Unknown RASH Verified 02/23/25 14:52 Review of Systems Review of Systems: Yes all other systems are reviewed and are negative PMFSH Past Medical History Medical History No known health problems Social History Social History Advance Directives: No Advance Directives Information Provided: No Do you have a plan to hurt others: No Plan Physical Exam ED Vital Signs: Vital Signs - 24 hr 02/23/25 14:46 02/23/25 16:31 Temperature 98.1 F 98.2 F Pulse Rate 77 78 Respiratory Rate 16 18 Blood Pressure 111/78 98/50 L Pulse Oximetry 100 97 Oxygen Delivery Method Room Air Room Air BMI result Body Mass Index 28.3 Appearance: Alert. Oriented X3. No acute distress. Eyes: No pallor or icterus ENT: Pharynx normal. Oral Mucosa moist Neck: Normal inspection. Neck supple. CVS: Normal heart rate and rhythm. Pulses normal. Respiratory: No respiratory distress. Equal air entry bilateral, no wheezing/rales/rhonchi Abdomen: Soft and nontender. Bowel sounds are present, no mass palpable, no CVA tenderness Skin: Skin warm and dry. Normal skin color. Normal skin turgor. Extremities: No lower extremity edema. No calf tenderness Neuro: Oriented X 3. No motor deficit. No sensory deficit. Course Course Course Narrative: This is an RME: Additional HPI, ROS, PE not included below will be deferred to primary provider. RME assessment and note performed by: Ivonne Camacho PA-C This is a [id number]-y[age]qf-female who presents to the ER with complaints of nausea, vomiting, diarrhea, headache and vaginal bleeding. She states that her symptoms started at 2AM this morning. Reporting chest pain, and right sided eye pain. Hx of ovarian cysts. Reports that she is passing golf ball sized blood clots vaginally. Plan: Labs, further ER eval needed Medications Administered Discontinued Medications Generic Name Dose Route Start Last Admin Trade Name Rola PRN Reason Stop Dose Admin Acetaminophen 975 mg 02/23/25 14:50 02/23/25 14:54 Acetaminophen 325 Mg Tablet PO 02/23/25 14:51 975 mg ONCE ONE Administration Ibuprofen 600 mg 02/23/25 17:09 02/23/25 17:16 Ibuprofen 600 Mg Tablet PO 02/23/25 17:10 600 mg ONCE ONE Administration Loperamide HCl 2 mg 02/23/25 17:09 02/23/25 17:16 Loperamide Hcl 2 Mg Capsule PO 02/23/25 17:10 2 mg ONCE ONE Administration Ondansetron HCl 4 mg 02/23/25 17:09 02/23/25 17:16 Ondansetron Odt 4 Mg Tab.Patt [place] 02/23/25 17:10 4 mg ONCE ONE Administration Medical Decision Making Medical Decision Making [facility] Narrative: Patient's nausea vomiting diarrhea since morning turned out to be COVID positive will give her supportive treatment patient does have menorrhagia with H/ H, stable Lab Data [facility] Lab Attestation statement: I reviewed the patient's lab results. 02/23/25 15:17 02/23/25 15:17 Labs: Lab Results 02/23/25 Range/Units 15:17 WBC 6.3 (4.8-10.8) X10*3/uL RBC 4.09 L (4.20-5.50) X10*6/uL Hgb 12.3 (12.0-16.0) g/dl Hct 36.3 L (37.0-47.0) % MCV 88.8 (80.0-98.0) fL MCH 30.1 (27.0-33.0) pg MCHC 33.9 (31.0-35.0) g/dl RDW 12.7 (11.0-16.0) % Plt Count 249 (160-400) X10*3/uL MPV 10.3 (9.4-12.3) fL Immature Gran % (Auto) 0.5 H (0.0-0.4) % Neut % (Auto) 80.0 H (45-73) % Lymph % (Auto) 6.9 L (20-40) % [place] % (Auto) 10.7 (2-11) % Eos % (Auto) 1.4 (0-4) % Baso % (Auto) 0.5 (0-2) % Lymph # (Auto) 0.4 L (1.2-4.9) X10*3/uL [place] # (Auto) 0.7 (0.1-1.2) X10*3/uL Eos # (Auto) 0.1 (0.0-0.4) X10*3/uL Baso # (Auto) 0.0 (0.0-0.2) X10*3/uL Abs Immat Gran (auto) 0.03 (0.00-0.03) X10*3/uL Absolute Neuts (auto) 5.1 (2.0-8.3) x10*3/uL Absolute Nucleated RBC 0.000 (0.0-0.012) X10*3/uL Nucleated RBC % (auto) 0.0 (0.0-0.2) /100WBC Sodium 139 (135-145) mmol/L Potassium 3.7 (3.3-5.1) mmol/L Chloride 106 (96-108) mmol/L Carbon Dioxide 25 (22-29) mmol/L Anion Gap 12 (12-20) BUN 4 L (9-16) mg/dL Creatinine 0.53 (0.5-1.4) mg/dL Estim Creat Clear Calc 131.9 Estimated GFR > 60 Random Glucose 89 (60-115) mg/dL Calcium 8.7 (8.4-10.2) mg/dL Magnesium 1.9 (1.6-2.6) mg/dL Total Bilirubin 0.3 (0.0-1.0) mg/dL Direct Bilirubin 0.1 (0.0-0.5) mg/dL AST 19 (5-31) U/L ALT 18 (0-31) U/L Alkaline Phosphatase 58 (39-117) U/L Troponin I High Sens < 2.7 (<3.5-17.0) ng/L Total Protein 7.4 (6.5-8.0) g/dL Albumin 4.3 (3.5-5.0) g/dL Lipase 8 (8-78) U/L Beta HCG, Quant < 2 mIU/mL Influenza Type A (PCR) NEGATIVE (Negative) Influenza Type B (PCR) NEGATIVE (Negative) RSV RNA Qual (PCR) NEGATIVE (Negative) SARS-CoV-2 RNA (RT-PCR) POSITIVE A (Negative) Blood Type O Positive Antibody Screen NEGATIVE Discharge Plan Discharge Clinical Impression: COVID-19 Patient Disposition: Home, Self-Care Instructions: COVID-19 (Coronavirus Disease 2019) (ED), Social Distancing Guidelines for COVID-19 (ED) Additional Instructions: Drink plenty of fluids Medicine for nausea and diarrhea as prescribed Tylenol/Motrin for fever/body Prescriptions: New ondansetron 4 mg tablet,disintegrating 4 mg PO Q6-8H PRN (Reason: nausea and vomiting) Qty: 7 0RF loperamide [Imodium A-D] 2 mg tablet 2 mg PO Q6H PRN (Reason: loose stool) Qty: 14 0RF No Action azxmhtmtxb-kelkroaenpsdh-ujsh [Fioricet] 50-300-40 mg capsule 1 cap PO Q8H PRN (Reason: headache) Qty: 10 0RF ondansetron 4 mg tablet,disintegrating 4 mg PO Q8H PRN (Reason: nausea and vomiting) Qty: 10 0RF amoxicillin 500 mg capsule 1,000 mg PO TID 5 Days Qty: 30 0RF alum-mag hydroxide-simeth [Maalox Advanced] 200-200-20 mg/5 mL suspension 10 ml PO QID PRN (Reason: indigestion) Qty: 3000 0RF Rx Instructions: administer between meals and at bedtime famotidine 20 mg tablet 20 mg PO DAILY Qty: 30 0RF Print Language: Welsh
[2025-02-23] MEDS: Acetaminophen 325 MG TABLET 975 MG PO (14:54)
[2025-02-23 15:27] LABS: MANUAL DIFF FLAG NO
[2025-02-23 15:29] LABS: Basophils Percent Auto 0.5 % (0-2); Eosinophils Absolute Auto 0.1 X10*3/uL (0.0-0.4); Eosinophils Percent Auto 1.4 % (0-4); Hematocrit 36.3 % (37.0-47.0); Hemoglobin 12.3 g/dl (12.0-16.0); Imm Gran Abs Auto 0.03 X10*3/uL (0.00-0.03); Imm Gran Pct Auto 0.5 % (0.0-0.4); Lymphocytes Absolute Auto 0.4 X10*3/uL (1.2-4.9); Lymphocytes Percent Auto 6.9 % (20-40); Mean Corpuscular HGB Conc 33.9 g/dl (31.0-35.0); Mean Corpuscular Hemoglobin 30.1 pg (27.0-33.0); Mean Corpuscular Volume 88.8 fL (80.0-98.0); Mean Platelet Volume 10.3 fL (9.4-12.3); Monocytes Absolute Auto 0.7 X10*3/uL (0.1-1.2); Monocytes Percent Auto 10.7 % (2-11); Neutrophils Absolute Auto 5.1 x10*3/uL (2.0-8.3); Platelet Count 249 X10*3/uL (160-400); Red Blood Count 4.09 X10*6/uL (4.20-5.50); Red Cell Distribution Width 12.7 % (11.0-16.0); White Blood Count 6.3 X10*3/uL (4.8-10.8)
[2025-02-23 15:51] LABS: Alanine Aminotransferase 18 U/L (0-31); Albumin Level 4.3 g/dL (3.5-5.0); Alkaline Phosphatase 58 U/L (39-117); Anion Gap 12 (12-20); Aspartate Amino Transferase 19 U/L (5-31); Bilirubin Direct 0.1 mg/dL (0.0-0.5); Bilirubin Total 0.3 mg/dL (0.0-1.0); Blood Urea Nitrogen 4 mg/dL (9-16); Calcium 8.7 mg/dL (8.4-10.2); Carbon Dioxide 25 mmol/L (22-29); Chloride 106 mmol/L (96-108); Creatinine Clr Calc Pharmacy 131.9; Estimated Glomerular Filt Rate > 60; Glucose Random 89 mg/dL (60-115); Lipase 8 U/L (8-78); Magnesium 1.9 mg/dL (1.6-2.6); Potassium 3.7 mmol/L (3.3-5.1); Sodium 139 mmol/L (135-145); Total Protein 7.4 g/dL (6.5-8.0)
[2025-02-23 15:54] LABS: HCG Quantitative < 2 mIU/mL; Troponin-I High Sensitivity < 2.7 ng/L (<3.5-17.0)
[2025-02-23 16:11] LABS: Influenza A PCR NEGATIVE (Negative); Influenza B PCR NEGATIVE (Negative); Resp Syncy Virus RNA Qual PCR NEGATIVE (Negative); SARS COV2 PCR INHOUSE POSITIVE (Negative)
[2025-02-23 16:31] VITALS: BP 98/50; PULSE 78; RESP 18; TEMP 36.8; O2SAT 97
[2025-02-23] MEDS: Ondansetron ODT 4 MG TAB.RAPDIS TRANSLINGU (17:16)
[2025-02-23] MEDS: Ibuprofen 600 MG TABLET PO (17:16)
[2025-02-23] MEDS: Loperamide HCl 2 MG CAPSULE PO (17:16)
[2025-02-23 17:46] VITALS: BP 109/34; PULSE 68; RESP 18; TEMP 36.6; O2SAT 97
[2025-02-23 18:11] VITALS: BP 109/34; PULSE 68; RESP 18; TEMP 36.6; O2SAT 97
--- OUTSIDE RECORDS SUMMARY | 2025-02-23 19:45 | XMS_ITS | Clinical Summary ---
Author Organization [facility] [address] [facility] Address [address] [place] [address] Phone Care Team Providers Care Storage Management Architect Name Role Phone Justine Ridley MD Primary Care Provider [phone] Allergies Active Allergy Reactions Criticality Noted Date Comments Cephalexin Monohydrate 07/03/2014 Patient states she developed rash after taking this and bactrim Sulfamethoxazole-Trimethopr im 07/03/2014 Patient states she developed rash after taking this and keflex Active Problems Problem Noted Date Diagnosed Date Chronic abdominal pain 06/27/2024 Overview (08/16/2024): Last Assessment & Plan: I counseled Ramila that her pain sound most likely GI in nature. No evidence of Stamp Analyst pathology that would cause it. I recommended [...] Encounters Date Type Department Care Team Description 11/28/2024 Telephone Gastroenterology - [address] [place] [address] Escobar Feldman MD SPECIAL PROCEDURE from Last 3 Months Immunizations Name Administration [...] Sign Reading Time Taken Comments Blood Pressure 113/72 11/02/2024 9:31 AM EST Pulse 75 11/02/2024 9:31 AM EST Temperature 36.2 C (97.1 F) 11/02/2024 9:31 AM EST Respiratory Rate 16 11/02/2024 9:31 AM EST Oxygen Saturation 98% 11/02/2024 9:31 AM EST Inhaled Oxygen Concentration - - Weight 85.5 kg (188 lb 9.6 oz) 11/02/2024 9:31 A M EST Height 160 cm (5' 3 ) 11/02/2024 9:31 AM EST Body Mass Index 33.41 11/02/2024 9:31 AM EST Plan of Treatment Health Maintenance Due Date Last Done Comments Breast Cancer Screening 1983 Hepatitis B Vaccines (1 of 3 - 19+ 3-dose series) 2002 Cervical Cancer Screening: P ap Smear 06/25/2015 06/25/2012, 06/25/2012 Cholesterol Screening (Lipid Panel) 07/29/2022 07/23/2015 Depression Screening 07/29/2022 Social Influencers of Health Screening 07/29/2022 COVID-19 Vaccine ( - 2023-2 5 season) 2024 Influenza Vaccine (Season Ended) 2025 DTaP,Tdap,and Td Vaccines (2 - Td or Tdap) 06/19/2025 06/19/2015 HIV Screening Completed 11/02/2024 Hepatitis C Screening Completed 11/02/2024 , 11/02/2024 HIB Vaccines Aged Out No longer eligi [...] age to complete this topic Meningococcal B Vaccine Aged Out No l onger eligible based on patient's age to complete [...] Procedure Name Priority Date/Time Associated Diagnosis Comments HEPATITIS C ANTIBODY Routine 11/02/2024 11:22 AM EST Pain of upper abdomen Lower abdominal pain HIV 1, 2 ANTIBODY, P24 ANTIGEN WITH REFLEX TO DIFFERENTIATION Routine 11/02/2024 11:22 AM EST Pain of upper abdomen Lower abdominal pain LIPID PANEL Routine 07/23/2015 HM HPV Routine 06/25/2012 from Last 3 Months or Most Recently Relevant to Health Maintenance Results * Hepatitis C antibody (11/02/2024 11:22 AM EST) Hepatitis C Antibody Negative Negative LAB CHEMISTRY METHOD 11/02/2024 4:42 PM EST [facility] Blood Venous blood specimen / Unknown Venipuncture / Unknown 11/02/2024 11:22 AM EST 11/02/2024 11:22 AM EST Magaly Loomis TRAVEL INFORMATION CENTER SUPERVISOR LAB BLOOD ORDERABLES Final R esult [facility] [address] [place] [address], * HIV 1,2 antibody, p24 antigen with reflex to differentiation (11/02/2024 11:22 AM EST) Pathologist [facility] HIV Combo AB/AG Negative Negative LAB CHEMISTRY METHOD 11/02/2024 4:42 PM EST [facility] Blood Venous blood specimen / Unknown Venipuncture / Unknown 11/02/2024 11:22 AM EST 11/02/2024 11:22 AM EST Narrative [facility] - 11/02/2024 4:42 PM EST This assay is a 4th generation assay allowing for earlier detection of HIV infection by detecting the presence of the HIV-1 p24 antigen as well as the traditional antibodies to HIV type 1 (including group O) and type 2. Use of a 4th generation assay is the current CDC recommendation for HIV screening. Magaly Loomis TRAVEL INFORMATION CENTER SUPERVISOR LAB BLOOD ORDERABLES Final R esult Performing Organization Address City/[facility]/ZIP Co de Phone Number [facility] [address] [place] [address], * Lipid panel (07/23/2015) LDL/HDL Ratio 2 0 - 4 Triglycerides 56 0 - 150 mg/dL Cholesterol 141 0 - 200 mg/dL HDL 63 >=40 mg/dL LDL Cholesterol 67 0 - 100 mg/dL Blood Venous blood specimen / Unknown Historical Provider LAB BLOOD ORDERABLES [place] Result * Cervical Cancer Screening: HPV (06/25/2012) Cervical Cancer Screening: HPV No interpretation , Abstracted us Historical Provider HEALTH MAINTENANCE Final Result from Last 3 Months or Most Recently Relevant to Health Maintenance Insurance [facility] PL[employer] Care Teams Storage Management Architect Relationship Specialty Start Date End Date Justine Ridley MD [address] [place] [address] PCP - General Internal Medicine 05/27/21
== END 2025-02-23 18:12 | disposition home or self-care (01) ==
PROVIDERS: Physician Assistant Medical; Emergency Provider Internal Medicine; PCP Internal Medicine
DX: U07.1 COVID-19 (principal); N93.9 Abnormal uterine and vaginal bleeding, unspecified; R07.89 Other chest pain; H57.11 Ocular pain, right eye; R11.2 Nausea with vomiting, unspecified; R10.2 Pelvic and perineal pain; Z79.899 Other long term (current) drug therapy
CPT/HCPCS: 0241U; 36415; 80048; 80076; 83690; 83735; 84484; 84702; 85025; 86850; 86900; 86901; 93005; 99283; 99285

== ENCOUNTER → 2025-02-23 14:04 | Outpatient (BNV) | payer OTHER, SELFPAY | PROVIDERS: Emergency Provider Internal Medicine; PCP Internal Medicine; Visit Provider Internal Medicine | DX: R07.9 Chest pain, unspecified (principal) | CPT/HCPCS: 93010 ==

== ENCOUNTER 2025-03-20 12:22 | Emergency (ER) | payer OTHER, SELFPAY ==
--- NOTE | ~2025-03-20 | US_ITS ---
EXAMINATION: US PELVIS TRANSABDOMINAL AND TRANSVAGINAL HISTORY: heavy vaginal bleeding, ABD pain COMPARISON: Comparison is made with the prior examination dated 05/26/2024. TECHNIQUE: Transabdominal and endovaginal real-time 2D bull-scale ultrasound was performed. FINDINGS: Uterus: The uterus is normal in size, measuring 10.5 x 4.3 x 5.3 cm. Myometrium has a normal echotexture. Again seen are anterior fibroids measuring 14 x 11 x 15 mm (previously 14 x 11 x 14 mm) and 9 x 11 x 12 mm (previously 7 x 7 x 7 mm) disease. Endometrium: The endometrial stripe measures 9 mm in thickness. There are nabothian cysts in the cervix. Right ovary: The right ovary measures 1.9 x 1.6 x 1.9 cm. The right ovary is normal in size and echotexture. Left ovary: The left ovary measures 1.9 x 1.3 x 1.1 cm. The left ovary is normal in size and echotexture. Pelvic fluid: none. US/US pelvic and transvaginal IMPRESSION: Uterine fibroids as described. Otherwise unremarkable pelvic ultrasound. Electronically signed by: Bulmaro Olea MD 03/20/2025 02:12 PM EDT
--- NOTE | 2025-03-20 12:33 | ED.FEMALEGU ---
HPI - Female Genitourinary General Chief complaint: Vaginal Bleeding Stated complaint: vaginal bleeding Time Seen by Provider: 03/20/25 13:38 Source: patient and RN notes reviewed Mode of arrival: ambulatory Limitations: no limitations History of Present Illness ED Provider: Ivonne Camacho PA-C HPI Narrative: This is a 40-year-old female, with a past medical history of uterine fibroids, who presents emergency department with complaints of vaginal bleeding for the last 4 days. Patient states that in January she had vaginal bleeding throughout the entire month. She states that this resolved up until 4 days ago when she has had vaginal bleeding. She states that she has been using proximally 4 pads a day. She states that today she has used 2-3 pads. She also reports some abdominal pain and cramping. Denies taking any medications prior to arrival. She denies any fevers, chills, vomiting, or diarrhea. She does report some urinary frequency, urgency and dysuria. No other complaints or concerns at this time. MD elicited complaint: vaginal bleeding Quality of pain: cramping Consistency: constant Vaginal discharge: none Vaginal bleeding: moderate, bright red and # pads per day (4) Urinary symptoms: Dysuria, Urgency and Frequency Associated symptoms: abdominal pain Patient : No Related Data Previous Rx's ?Medication ?Instructions ?Recorded [id number]-eepwlkhaquuya-hpaapngt 1 cap PO Q8H PRN headache #10 caps 08/06/20 50 mg-300 mg-40 mg capsule (Fioricet) amoxicillin 500 mg capsule 1,000 mg (2 x 500 mg) PO TID 5 12/14/23 days #30 caps ondansetron 4 mg disintegrating 4 mg PO Q8H PRN nausea and 12/14/23 tablet vomiting #10 tabs aluminum-mag hydroxide-simethicone 10 ml PO QID PRN indigestion 10/27/24 200 mg-200 mg-20 mg/5 mL oral susp #3,000 mL (Maalox Advanced) famotidine 20 mg tablet 20 mg PO DAILY #30 tabs 10/27/24 loperamide 2 mg tablet (Imodium 2 mg PO Q6H PRN loose stool #14 02/23/25 A-D) tabs ondansetron 4 mg disintegrating 4 mg PO Q6-8H PRN nausea and 02/23/25 tablet vomiting #7 tabs acetaminophen 500 mg tablet 500 mg PO Q6H PRN pain #30 tabs 03/20/25 (Tylenol Extra Strength) naproxen 500 mg tablet 500 mg PO BID 2 weeks #28 tabs 03/20/25 nitrofurantoin 100 mg PO Q12H 5 days #10 caps 03/20/25 monohydrate/macrocrystals 100 mg capsule (Macrobid) Allergies Allergy/AdvReac Type Severity Reaction Status Date / Time cephalexin (From KEFLEX) Allergy Unknown RASH Verified 03/20/25 12:39 sulfamethoxazole (From Allergy Unknown RASH Verified 03/20/25 12:39 BACTRIM) trimethoprim (From BACTRIM) Allergy Unknown RASH Verified 03/20/25 12:39 Review of Systems Review of Systems: Yes all other systems are reviewed and are negative Constitutional: Constitutional: Reports as per [facility] Past Medical History Medical History No known health problems Social History Social History Smoked in Last 30 Days: No Use of substances other than those prescribed or required for medical reasons: Yes Substance Use Type: Marijuana Advance Directives: No Advance Directives Information Provided: Yes Do you have a plan to hurt others: No Plan Patient : No Physical Exam Vital Signs: Vital Signs: Last Vital Signs Temp 97.9 F 03/20/25 16:57 Pulse 75 03/20/25 16:57 Resp 15 03/20/25 16:57 BP 113/36 L 03/20/25 16:57 Pulse Ox 100 03/20/25 16:57 O2 Del Method Room Air 03/20/25 16:57 BMI result Body Mass Index 29.2 Const: General: cooperative, comfortable and no acute distress Orientation/consciousness: patient oriented x3 Limitations: no limitations HEENT: Head: Yes normal to inspection, Yes normocephalic and Yes atraumatic Ears: hearing grossly normal bilaterally General nose exam: Normal external nose present Face and sinus: Yes normal facial exam Mouth: Normal oral and palatal mucosa present, oropharynx normal and moist mucous membranes Throat: Yes posterior oropharynx normal Eyes: General: appearance normal, both eyes and all related structures Eyelids: Yes eyelids normal Conjunctivae: conjunctivae normal Sclerae: sclerae normal Pupils: Equal, round and reactive pupils present EOM: EOMs intact bilaterally Neck: Neck: Yes normal visual inspection, Yes full ROM and Yes no lymphadenopathy Lymphatic: no lymphadenopathy noted Chest: Chest palpation & inspection: normal inspection of the chest Resp: Effort & Inspection: normal respiratory effort and able to speak in complete sentences Auscultation: clear to auscultation bilaterally, no crackles, no rales, no rhonchi and no wheezes Cardio: Rate: regular rate Rhythm: regular rhythm Heart sounds: S1 normal heart sound present and S2 normal heart sound present GI: Inspection: Yes normal to inspection : Other: Speculum exam was performed with Yasmin Nichols qa tech present at all times. Patient with mild to moderate thin red blood noted externally, internal examination revealing mild amount of thin vaginal bleeding coming from the closed cervical os. No cervical motion tenderness. No abnormal vaginal discharge. No blood clots appreciated. External Female Exam: normal external appearance Skin: General skin exam: no rashes or lesions noted Trauma: no lacerations or abrasions Wounds: no wounds Neuro: General: patient oriented x3 and moves all extremities Cranial nerves: Yes Equal, round and reactive pupils present Extrem: General: Yes normal to inspection Right upper extremity: normal to inspection Left upper extremity: normal to inspection Right lower extremity: normal to inspection Left lower extremity: normal to inspection Course Course Course Narrative: This is an RME performed by Lorene Jacques CNP: Additional HPI, ROS, PE not included below will be deferred to primary provider. Patient is a 40-year-old female who presents emergency department for evaluation of heavy vaginal bleeding. Onset 4 days ago. Reports that she is using 4 extra large sanitary napkins daily that are saturated. Admits to having clots associated with this. She has lower abdominal/pelvic discomfort, pain in the back. Associated nausea and vomiting. Denies fevers or chills. Denies dysuria or urinary frequency. Admits to last menstrual cycle being for the entire month of January. Plan: Serum labs, urinalysis, pelvic ultrasound Medications Administered Discontinued Medications Generic Name Dose Route Start Last Admin Trade Name Freq PRN Reason Stop Dose Admin Ketorolac Tromethamine 30 mg 03/20/25 15:11 03/20/25 15:28 Ketorolac Tromethamine 30 Mg/Ml Vial IM 03/20/25 15:12 30 mg ONCE ONE Administration Ondansetron HCl 4 mg 03/20/25 15:13 03/20/25 15:28 Ondansetron Odt 4 Mg Tab.Patt VALDES 03/20/25 15:14 4 mg ONCE ONE Administration Medical Decision Making Medical Decision Making [facility] Narrative: This is a 40-year-old female who presents emergency department with complaints of vaginal bleeding for the last 4 days. On arrival, blood pressure 103/60, all other vital signs within normal limits. She is speaking in full sentences under no acute distress. Labs were obtained prior to my evaluation, H&H stable, similar to previous. No evidence of anemia. Chemistry with no significant electrolyte derangement. Beta quant is negative. Urine with high specific gravity, with positive nitrites, rbc's, wbc's, and bacteria. Given that she does have urinary symptoms, will treat as a urinary tract infection. Pelvic examination was performed, she does have some active bleeding noted, no evidence of hemorrhage. Collected swabs and sent to lab. Given that her H&H is stable, only using 4-5 pads per day, at this time, patient can be safely discharged, with very strict return precautions. Patient understands and agrees with plan. Also referred to OBGYN for management. Given Toradol injection in the department, feeling pain has improved. Pelvic ultrasound was performed which revealed uterine fibroids. Patient stable for discharge. Differential Diagnosis Differential Diagnoses: The differential diagnosis associated with the presentation includes Abnormal uterine bleeding, , anemia, uterine fibroids Lab Data [facility] Lab Attestation statement: I reviewed the patient's lab results. See MDM and course 03/20/25 12:48 03/20/25 12:48 Labs: Lab Results 03/20/25 Range/Units 12:48 WBC 11.1 H (4.8-10.8) X10*3/uL RBC 4.62 (4.20-5.50) X10*6/uL Hgb 13.6 (12.0-16.0) g/dl Hct 40.5 (37.0-47.0) % MCV 87.7 (80.0-98.0) fL MCH 29.4 (27.0-33.0) pg MCHC 33.6 (31.0-35.0) g/dl RDW 12.7 (11.0-16.0) % Plt Count 325 D (160-400) X10*3/uL MPV 10.9 (9.4-12.3) fL Immature Gran % (Auto) 0.3 (0.0-0.4) % Neut % (Auto) 79.9 H (45-73) % Lymph % (Auto) 13.2 L (20-40) % Dyer % (Auto) 5.2 (2-11) % Eos % (Auto) 0.9 (0-4) % Baso % (Auto) 0.5 (0-2) % Lymph # (Auto) 1.5 (1.2-4.9) X10*3/uL Dyer # (Auto) 0.6 (0.1-1.2) X10*3/uL Eos # (Auto) 0.1 (0.0-0.4) X10*3/uL Baso # (Auto) 0.1 (0.0-0.2) X10*3/uL Abs Immat Gran (auto) 0.03 (0.00-0.03) X10*3/uL Absolute Neuts (auto) 8.8 H (2.0-8.3) x10*3/uL Absolute Nucleated RBC 0.000 (0.0-0.012) X10*3/uL Nucleated RBC % (auto) 0.0 (0.0-0.2) /100WBC Sodium 140 (135-145) mmol/L Potassium 3.4 (3.3-5.1) mmol/L Chloride 110 H (96-108) mmol/L Carbon Dioxide 24 (22-29) mmol/L Anion Gap 9 L (12-20) BUN 6 L (9-16) mg/dL Creatinine 0.58 (0.5-1.4) mg/dL Estim Creat Clear Calc 122.4 Estimated GFR > 60 Random Glucose 106 (60-115) mg/dL Calcium 8.6 (8.4-10.2) mg/dL Total Bilirubin 0.5 (0.0-1.0) mg/dL AST 18 (5-31) U/L ALT 14 (0-31) U/L Alkaline Phosphatase 63 (39-117) U/L Total Protein 8.0 (6.5-8.0) g/dL Albumin 4.5 (3.5-5.0) g/dL Beta HCG, Quant < 2 mIU/mL Urine Color RED Urine Appearance Turbid Urine pH 5.5 (5.0-9.0) Ur Specific Wilson >= 1.030 H (1.005-1.025) Urine Protein 300 (3+) H (Neg-Trace) mg/dL Urine Glucose (UA) Negative (Negative) mg/dL Urine Ketones 40 (Negative) mg/dL Urine Blood Large (3+) H (Negative) Urine Nitrite Positive H (Negative) Ur Leukocyte Esterase Negative (Negative) Urine RBC >20 H (0-2) /HPF Urine WBC 6-10 (0-5) /HPF Ur Squamous Epith Cells 6-10 (0-2) /HPF Urine Bacteria 3+ (None Seen) Hyaline Casts 0-2 (0-2) /LPF Radiology Impression Discussion of test interpretation with radiology: I have reviewed the radiologist's reading. Radiologist Impression: HISTORY: heavy vaginal bleeding, ABD pain COMPARISON: Comparison is made with the prior examination dated 05/26/2024. TECHNIQUE: Transabdominal and endovaginal real-time 2D bull-scale ultrasound was performed. FINDINGS: Uterus: The uterus is normal in size, measuring 10.5 x 4.3 x 5.3 cm. Myometrium has a normal echotexture. Again seen are anterior fibroids measuring 14 x 11 x 15 mm (previously 14 x 11 x 14 mm) and 9 x 11 x 12 mm (previously 7 x 7 x 7 mm) disease. Endometrium: The endometrial stripe measures 9 mm in thickness. There are nabothian cysts in the cervix. Right ovary: The right ovary measures 1.9 x 1.6 x 1.9 cm. The right ovary is normal in size and echotexture. Left ovary: The left ovary measures 1.9 x 1.3 x 1.1 cm. The left ovary is normal in size and echotexture. Pelvic fluid: none. US/US pelvic and transvaginal IMPRESSION: Uterine fibroids as described. Otherwise unremarkable pelvic ultrasound. Electronically signed by: Bulmaro Olea MD 03/20/2025 02:12 PM EDT Dictated By: Bulmaro Olea MD Discharge Plan Discharge Clinical Impression: Vaginal bleeding Patient Disposition: Home, Self-Care Instructions: Abnormal (Dysfunctional) Uterine Bleeding (ED) Additional Instructions: You were seen in the emergency department due to abnormal vaginal bleeding. Your workup today was reassuring. We will call you if any of your results are abnormal. Your urine is concerning for a possible urinary tract infection, please take prescribed antibiotic as directed. Macrobid is an antibiotic, take as prescribed. Naproxen as a medication that you can take twice a day as needed for cramping. This may also help with the bleeding. Tylenol can also be added if you have worsening pain as well. We will call you if any of your swabs were positive. You need to follow-up with an OBGYN as you need to be monitored and they can further treat your symptoms. Drink plenty of fluids get plenty of rest. If any new or worsening symptoms occur including but not limited to worsening bleeding, severe lightheadedness or dizziness, chest pain, shortness of breath, please seek emergent care. For any emergent OBGYN concerns, you may visit [facility]. Located: [address] For OBGYN routine care: [facility] [phone] Prescriptions: New naproxen 500 mg tablet 500 mg PO BID 14 Days Qty: 28 0RF acetaminophen [Tylenol Extra Strength] 500 mg tablet 500 mg PO Q6H PRN (Reason: pain) Qty: 30 0RF nitrofurantoin monohyd/m-cryst [Macrobid] 100 mg capsule 100 mg PO Q12H 5 Days Qty: 10 0RF Rx Instructions: must administer with a meal/food No Action [id number]-qxbmmwwlgqpuq-[id number] [Fioricet] 50-300-40 mg capsule 1 cap PO Q8H PRN (Reason: headache) Qty: 10 0RF ondansetron 4 mg tablet,disintegrating 4 mg PO Q6-8H PRN (Reason: nausea and vomiting) Qty: 7 0RF loperamide [Imodium A-D] 2 mg tablet 2 mg PO Q6H PRN (Reason: loose stool) Qty: 14 0RF ondansetron 4 mg tablet,disintegrating 4 mg PO Q8H PRN (Reason: nausea and vomiting) Qty: 10 0RF amoxicillin 500 mg capsule 1,000 mg PO TID 5 Days Qty: 30 0RF alum-mag hydroxide-simeth [Maalox Advanced] 200-200-20 mg/5 mL suspension 10 ml PO QID PRN (Reason: indigestion) Qty: 3000 0RF Rx Instructions: administer between meals and at bedtime famotidine 20 mg tablet 20 mg PO DAILY Qty: 30 0RF Referrals: [facility] [[facility] Group] Interventions: ED Discharge Assessment Last Done: 03/20/25 16:57 Discharge Date/Time: 03/20/25 17:01 Print Language: Guamanian
[2025-03-20 12:38] VITALS: BP 103/60; PULSE 80; RESP 19; TEMP 36.9; O2SAT 100; BMI 29.2
[2025-03-20 13:15] LABS: MANUAL DIFF FLAG NO
[2025-03-20 13:28] LABS: Appearance Urine Turbid; Glucose Urine UA Negative (Negative); PH 5.5 (5.0-9.0); UMIC TRIGGER UACC YES
[2025-03-20 13:33] LABS: Hematocrit 40.5 % (37.0-47.0); Hemoglobin 13.6 g/dl (12.0-16.0); Imm Gran Abs Auto 0.03 X10*3/uL (0.00-0.03); Imm Gran Pct Auto 0.3 % (0.0-0.4); Lymphocytes Absolute Auto 1.5 X10*3/uL (1.2-4.9); Mean Corpuscular HGB Conc 33.6 g/dl (31.0-35.0); Mean Corpuscular Hemoglobin 29.4 pg (27.0-33.0); Mean Corpuscular Volume 87.7 fL (80.0-98.0); NRBC Abs Auto 0.000 X10*3/uL (0.0-0.012); NRBC Pct Auto 0.0 /100WBC (0.0-0.2); Platelet Count 325 X10*3/uL (160-400); Red Blood Count 4.62 X10*6/uL (4.20-5.50); White Blood Count 11.1 X10*3/uL (4.8-10.8)
[2025-03-20 13:40] LABS: Specific Gravity - Urine >= 1.030 (1.005-1.025)
[2025-03-20 13:41] LABS: UACC Culture Trigger YES
[2025-03-20 13:45] LABS: Alanine Aminotransferase 14 U/L (0-31); Albumin Level 4.5 g/dL (3.5-5.0); Alkaline Phosphatase 63 U/L (39-117); Anion Gap 9 (12-20); Aspartate Amino Transferase 18 U/L (5-31); Blood Urea Nitrogen 6 mg/dL (9-16); Calcium 8.6 mg/dL (8.4-10.2); Carbon Dioxide 24 mmol/L (22-29); Chloride 110 mmol/L (96-108); Creatinine Clr Calc Pharmacy 122.4; Estimated Glomerular Filt Rate > 60; Potassium 3.4 mmol/L (3.3-5.1); Sodium 140 mmol/L (135-145); Total Protein 8.0 g/dL (6.5-8.0)
[2025-03-20 14:08] VITALS: BP 101/59; PULSE 75; RESP 17; TEMP 36.7; O2SAT 100
--- OUTSIDE RECORDS SUMMARY | 2025-03-20 14:54 | XMS_ITS | Clinical Summary ---
Author Organization [employer] Address [address] [place] [address] Care Team Providers Care Tapper Bit Name Role Phone Unavailable Primary Care Provider Unavailabl e Allergies Active Allergy Reactions Criticality Noted Date Comments Cephalexin 07/03/2014 Patient states she developed rash after taking this and bactrim Sulfamethoxazole-Trimethopr im 07/03/2014 Patient states she developed rash after taking this and keflex Medications No known medications Active Problems No known active problems Encounters Date Type Department Care Team Description 01/10/2025 3:15 PM EDT Office Visit [facility] [address] [place] [id number] David, Maria Isabel, OD Myopia of both eyes (Primary Dx) from Last 3 Months Social History Tobacco Use Types Packs/Day Years [...] 1983 HIV Screening 1983 SDOH Screening 1983 Disability Screening 1983 Alcohol/Substance Use Screening 1995 Family Planning (PISQ) 1998 HPV Vaccines (1 - 3-dose series) 1998 Hepatitis C Screening 2001 Hepatitis B Vaccines (1 of 3 - 19+ 3-dose series) 2002 Pap Smear 02/21/2004 Cervical Cancer Screening 2013 HPV/Cotest 2013 Mammogram 2023 COVID-19 Vaccine (1 - 2023-2 5 season) 2024 Influenza Vaccine (#1) 2025 DTaP/Tdap/Td Vaccines (2 - T d or Tdap) 06/19/2025 06/19/2015 Tobacco Screening 12/30/2025 12/30/2024 Zoster Vaccines (1 of 2) 2033 RSV [...] Years) and At-Risk Patients (6 to 49) Years Aged Out No longer eligi ble based on patient's age to complete this topic RSV under 20 months Aged Out No longe r eligible based on patient's age to complete this topic Rotavirus Vaccines Aged Out No longer eligible based on patient's age to complete this topic Insurance [facility] [place] [address]
--- OUTSIDE RECORDS SUMMARY | 2025-03-20 14:54 | XMS_ITS | Clinical Summary ---
Author Organization [facility] [address] [place] [address] [place] [phone] Phone Care Team Providers Care Director Of Sustainability Programs Name Role Phone Justine Ridley MD Primary Care Provider [phone] Allergies Active Allergy Reactions Criticality Noted Date [...] likely GI in nature. No evidence of Logger pathology that would cause it. I recommended [...] deficiency 10/20/2013 Thyromegaly 10/20/2013 TSH deficiency 10/20/2013 Immunizations Name Administration Dates Next Due PPD [...] 06/25/2012 Cholesterol Screening (Lipid Panel) 07/29/2022 07/23/2015 Social Influencers of Health Screening 07/29/2022 COVID-19 Vaccine (1 - 2023-2 5 season) 2024 Depression Screening 08/31/2024 Influenza Vaccine (#1) 2025 DTaP,Tdap,and Td Vaccines (2 - Td [...] 5 Years) and At-Risk Patients (6 to 49 Years) Aged Out No longer eligible b [...] LAB CHEMISTRY METHOD 11/02/2024 4:42 PM EST [facility] Blood Venous blood specimen / Unknown Venipuncture / Unknown 11/02/2024 11:22 AM EST 11/02/2024 11:22 AM EST 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 LAB BLOOD ORDERABLES Final R esult Performing Organization Address City/[facility]/ZIP Co de Phone Number [facility] [address] [place] [address], * HIV 1,2 antibody, p24 antigen with reflex to differentiation (11/02/2024 11:22 AM EST) [facility] HIV Combo AB/AG Negative Negative LAB CHEMISTRY METHOD 11/02/2024 4:42 PM EST [facility] Blood Venous blood specimen / Unknown Venipuncture / Unknown 11/02/2024 11:22 AM EST 11/02/2024 11:22 AM EST Narrative [facility] - 11/02/2024 4:42 PM EST This assay is a 4th generation assay allowing for earlier detection of HIV infection by detecting the presence of the HIV-1 p24 antigen as well as the traditional antibodies to HIV type 1 (including group O) and type 2. Use of a 4th generation assay is the current CDC recommendation for HIV screening. 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 LAB BLOOD ORDERABLES Final R esult Performing Organization Address City/[facility]/ZIP Co de Phone Number [facility] [address] [place] [address], [place] [phone] * Lipid panel (07/23/2015) [facility] LDL/HDL Ratio 2 0 - 4 Triglycerides 56 0 - 150 mg/dL Cholesterol 141 0 - 200 mg/dL HDL 63 >=40 mg/dL LDL Cholesterol 67 0 - 100 mg/dL Blood Venous blood specimen / Unknown Historical Provider LAB BLOOD ORDERABLES [place] l Result * Cervical Cancer Screening: HPV (06/25/2012) [facility] Cervical Cancer Screening: HPV No interpretation , Abstracted us Historical Provider HEALTH MAINTENANCE Final Result from Last 3 Months or Most Recently Relevant to Health Maintenance Insurance [facility] [employer] Care Teams Director Of Sustainability Programs Relationship Specialty Start Date End Date Justine Ridley MD [address] [place] [address] PCP - General Internal Medicine 05/27/21
--- NOTE | 2025-03-20 15:30 | PC.NURSE ---
pt verbalizing increase in lower abd pain w/ associated nausea. pt medicated per provider order. effectiveness pending. pending pelvic exam to be completed by provider at this time. plan of care ongoing. call adame placed within reach.
--- NOTE | 2025-03-20 16:27 | PC.NURSE ---
pelvic exam completed w/ PA and tech. tech obtained swabs/sent them to lab.
[2025-03-20 16:29] VITALS: BP 113/36; PULSE 75; RESP 15; TEMP 36.6; O2SAT 100
[2025-03-20 16:57] VITALS: BP 113/36; PULSE 75; RESP 15; TEMP 36.6; O2SAT 100
[2025-03-21 02:14] LABS: CT PCR NOT DETECTED (Not Detect.); NG PCR NOT DETECTED (Not Detect.)
[2025-03-21 10:00] LABS: Bacterial Vaginosis PCR POSITIVE (Negative); Candida Group PCR NOT DETECTED (Not Detect); Candida glab krusei PCR NOT DETECTED (Not Detect); Trichomonas vaginalis PCR NOT DETECTED (Not Detect)
== END 2025-03-20 17:01 | disposition home or self-care (01) ==
PROVIDERS: Nurse Practitioner Family; Physician Assistant Medical; Emergency Provider Emergency Medicine
DX: N76.0 Acute vaginitis (principal); N93.9 Abnormal uterine and vaginal bleeding, unspecified; R10.2 Pelvic and perineal pain; R11.2 Nausea with vomiting, unspecified
CPT/HCPCS: 36415; 76830; 76856; 80053; 81001; 81515; 84702; 85025; 87086; 87491; 87591; 96372; 99284; J1885

== ENCOUNTER → 2025-03-20 12:40 | Outpatient (BNV) | payer OTHER, SELFPAY | PROVIDERS: Emergency Provider Emergency Medicine; Visit Provider Radiology Diagnostic Radiology | DX: D25.9 Leiomyoma of uterus, unspecified (principal) | CPT/HCPCS: 76830; 76856 ==